=== PATIENT | female | born 1945 | race Caucasian/White ===

== ENCOUNTER 2016-12-21 16:12 | Inpatient (IN) | payer MEDICARE, MEDICAID ==
[~2016-12-21] VITALS: Ht 170.2 cm; Wt 79.4 kg
[~2016-12-21 16:12] MED LIST: ACET1TAB18 PO; BACL10TA PO; BUDE10.2 IH; BUSP10TA3 PO; CYAN10007 IM; DILT120C47 PO; DRON400T PO; ESOM40CA PO; FEXO-65 PO; FLUO40CA8 PO; FLUT1DIS28 IH; GABA-532 PO; GUAI118S76 PO; HUMULIN R SQ; INSU100V7 SQ; IPRA0.2S6 NEB; MIRT15TA7 PO; OXYC-128 PO; PRED1TAB PO; ROSU5TAB PO; SITA50TA PO; SODI15OR5 PO; SPIR25TA4 PO; [UNRECOGNIZED DRUG - CODE] PO; [UNRECOGNIZED DRUG - CODE] PO; [UNRECOGNIZED DRUG - SUPPLY]
--- NOTE | 2016-12-21 16:30 | NUR ---
DR Rooney at the bedside for eval and exam.
--- NOTE | 2016-12-21 16:30 | NUR ---
PT USES O2 VIA N/C ATC AT 2L.
[2016-12-21] MEDS ORDERED: IV NORMAL SALINE 1000 ML BAG IV ONE (16:45)
[2016-12-21 17:08] LABS: BASOPHILS % (AUTO) 0.4 % (0.0-2.0); EOSINOPHILS # (AUTO) 0.1 K/uL (0.0-0.7); EOSINOPHILS % (AUTO) 1.4 % (0.0-7.0); HEMATOCRIT 38.9 % (37-47); HEMOGLOBIN 12.6 G/DL (12.0-16.0); LYMPHOCYTES # (AUTO) 1.8 K/UL (0.8-4.8); LYMPHOCYTES % (AUTO) 17.2 % (20.5-51.5); MEAN CORPUSCULAR HEMOGLOBIN 27.4 UUG (27.0-31.0); MEAN CORPUSCULAR HGB CONC 32 g/dL (32.0-37.0); MEAN CORPUSCULAR VOLUME 84.6 FL (81.0-99.0); MONOCYTES # (AUTO) 0.9 K/UL (0.1-1.30); MONOCYTES % (AUTO) 8.2 % (0.0-11.0); NEUTROPHILS # (AUTO) 7.6 K/UL (1.8-8.9); NEUTROPHILS % (AUTO) 72.8 % (38.5-71.5); PLATELET COUNT (AUTO) 250 K/UL (150-450); WHITE BLOOD COUNT (AUTO) 10.4 K/UL (4.0-11.2)
[2016-12-21 17:11] LABS: CARBON DIOXIDE 34 mmol/L (21-32); CHLORIDE 94 mmol/L (98-107); CREATININE 1.6 mg/dL (0.6-1.3); POTASSIUM 5.1 mmol/L (3.5-5.1); UREA NITROGEN, BLOOD 39 mg/dL (7-18)
[2016-12-21] MEDS ORDERED: BENZ1LOZ58 MM (17:12)
[2016-12-21] MEDS ORDERED: HYDR-552 PO (17:12)
[2016-12-21] MEDS ORDERED: HYDR-3026 PO (17:12)
[2016-12-21] MEDS ORDERED: DILT60TA3 PO (17:12)
[2016-12-21] MEDS ORDERED: LEVE500T20 PO (17:12)
[2016-12-21] MEDS ORDERED: FLUT1BLS IH (17:12)
[2016-12-21] MEDS ORDERED: ALBU2.5V38 IH (17:12)
[2016-12-21] MEDS ORDERED: ALBU18HF2 IH (17:12)
[2016-12-21] MEDS ORDERED: ACET1TAB17 PO (17:12)
[2016-12-21] MEDS ORDERED: FURO-151 PO (17:12)
[2016-12-21] MEDS ORDERED: HYDR-3326 PO (17:12)
[2016-12-21] MEDS ORDERED: TRAV5DRO OP (17:12)
[2016-12-21 17:13] LABS: GLUCOSE 369 mg/dL (74-106)
[2016-12-21 17:17] LABS: ALANINE AMINOTRANSFERASE 17 U/L (14-59); ALKALINE PHOSPHATASE 101 U/L (50-136); ASPARTATE AMINOTRANSFERASE 9 U/L (15-37); BILIRUBIN,DIRECT 0.1 mg/dL (0.0-0.2); BILIRUBIN,TOTAL 0.3 mg/dL (0.2-1.0); LIPASE 173 U/L (73-393); TOTAL PROTEIN, SERUM 6.5 g/dL (6.4-8.2)
[2016-12-21] MEDS ORDERED: INSULIN REGULAR, HUMAN 1,000 UNITS/10 ML VIAL IV ONE (17:30)
[2016-12-21] MEDS ORDERED: PIPERACILLIN SODIUM/TAZOBACTAM 3.375 G in IV DEXTROSE 5% 50 ML IV ONE (17:30)
[2016-12-21] MEDS ORDERED: INSULIN REGULAR, HUMAN 300 UNIT/3 ML VIAL ONE (17:43)
[2016-12-21] MEDS ORDERED: PIPERACILLIN/TAZOBACTAM/D5W 50 ML IV ONE (17:43)
[2016-12-21] MEDS ORDERED: VANCOMYCIN IV 200 ML ONE (17:43)
--- NOTE | 2016-12-21 17:43 | NUR ---
DINNER PTOVIDED, PT ATE 100% OF TRAY. NO C/O PAIN.
[2016-12-21] MEDS: VANCOMYCIN IV 1,000 MG in IV DEXTROSE 5% 250 ML IV ONE ×2 (17:58→18:00)
--- NOTE | 2016-12-21 18:35 | NUR ---
RECEIVED PATIENT FOR ADMISSION 71 YEARS OLD FEMALE FROM ED BY JANICE TO ROOM 219 WITH DX OF CELLULITIS OF BOTH LOWER EXTREMITIES RIGHT WORSE THAN THE LEFT WITH EDEMA AND REDNESS.PLACED INTO BED FIXED AND MADE COMFORTABLE PATIENT IS ALERT AND ORIENTED ORIENTED TO ROOM AND FACILITY.SHE HAS VANCOMICIN RUNNING AT THIS TIME CONNECTED TO IV PUMP HEPLOCK ON HER LEFT FOREARM IN PATENT.SHE IS ON O2 AT 2L/M BY NASAL CANULLA WITH NO SOB MADE COMFORTABLE.
[2016-12-21 18:51] VITALS: BP 97/57
--- NOTE | 2016-12-21 18:55 | NUR ---
DR MILLER HERE AT HER BEDSIDE AND INTERVIEWING THE PATIENT PATIENT HAS HER MITAZAPINE IN HER PURSE AND REFUSED TO SEND IT TO THE PHARMACY AT THIS TIME.WILL INFORM THE AUTOMOTIVE LEASING SALES REPRESENTATIVE.
[2016-12-21] MEDS ORDERED: hydrOXYzine HCL 25 MG TABLET PO PRN (19:45)
[2016-12-21] MEDS ORDERED: IPRATROPIUM BROMIDE 0.5 MG/2.5 ML NEBU NEB PRN (19:45)
[2016-12-21] MEDS ORDERED: ONDANSETRON 4 MG/2 ML VIAL IV PRN (20:00)
[2016-12-21] MEDS ORDERED: ALBUTEROL SULFATE 2.5 MG/3 ML NEBU NEB PRN (20:00)
--- NOTE | 2016-12-21 20:00 | NUR ---
RECEIVED PATIENT AWAKE IN BED. REPORTED FROM DAYSHIFT NURSE THAT PATIENT JUST CAME TO THE FLOOR AT 1830. PATIENT IS A/O X4. DENIES ANY PAIN OR DISCOMFORT AT THIS TIME. VSS. PATIENT ON O2 2L NC SATING 100%. NO RESP. DISTRESS NOTED. PATIENT STATES SHE IS NOT ABLE TO WALK BUT USES W/C TO GET AROUND. PATIENT IS ABLE TO GET OOB AND GO TO BSC WITHOUT ANY ISSUES NOTED. IV HEPLOCK NOTED TO LEFT FA #20 GAUGE. PATIENT HAS OWN BOTTLE OF REMERON AT BEDSIDE. PATIENT WANTS TO KEEP WITH PERSONAL BELONGINGS. PATIENT IS AWAKE AND VERBALIZED UNDERSTANDING THAT SHE IS NOT ALLOWED TO TAKE OWN MEDS, WILL BE PROVIDED TO HER. CALL LIGHT IN REACH. ALL NEEDS ATTENDED. WILL CONTINUE TO MONITOR.
[2016-12-21] MEDS ORDERED: DEXTROSE 50% 50 ML DISP.SYRIN IV PRN (20:15)
[2016-12-21] MEDS ORDERED: INSULIN REGULAR, HUMAN 300 UNITS/3 ML VIAL SQ PRN (20:15)
[2016-12-21] MEDS ORDERED: INSULIN REGULAR, HUMAN 300 UNIT/3 ML VIAL SQ PRN (20:15)
[2016-12-21] MEDS: IV NS 1000 ML 1,000 ML IV PRN (20:20)
[2016-12-21 20:36] VITALS: BP 98/61
[2016-12-21] MEDS: INSULIN DETEMIR 300 UNIT/3 ML CARTRIDGE SQ SCH (20:56)
[2016-12-21] MEDS ORDERED: BLOOD SUGAR DIAGNOSTIC 1 EACH STRIP VI SCH (21:00)
[2016-12-21] MEDS ORDERED: DOCUSATE SODIUM 250 MG CAPSULE PO SCH (21:00)
--- NOTE | 2016-12-21 21:15 | NUR ---
PATIENT PLACED ON TELE ORDERED PER DR. CASTANEDA. PATIENT IS ON SR. PICTURES TAKEN AND PLACED IN CHART.
[2016-12-21] MEDS: DOCUSATE SODIUM 100 MG CAPSULE PO SCH (21:30)
[2016-12-21] MEDS: methylPREDNISolone SOD SUCC 40 MG/ML VIAL IV SCH (21:42)
[2016-12-21] MEDS: LEVOFLOXACIN 250MG /D5W 250 MG in PREMIXED 1 EACH IV SCH (21:42)
[2016-12-21] MEDS: LEVETIRACETAM 500 MG TABLET PO SCH (21:45)
[2016-12-21] MEDS: GABAPENTIN 100 MG CAPSULE PO SCH (21:45)
[2016-12-21] MEDS: BENZONATATE 100 MG CAPSULE PO SCH (21:45)
[2016-12-21] MEDS: MIRTAZAPINE 15 MG TABLET PO SCH (21:45)
[2016-12-21] MEDS: LATANOPROST OPHT DROP 2.5 ML BOTTLE EACHEYE SCH (21:57)
--- NOTE | 2016-12-21 23:00 | NUR ---
PATIENT PLACED ON CONTACT ISOLATION FOR POSSIBLE SHINGLES. NOTIFIED DR. CASTANEDA. PATIENT HAS A HISTORY OF HAVING SHINGLES. BLISTER NOTED TO RIGHT BUTTOCKS AND LOWER BACK. PATIENT SAID SHE RECENTLY JUST HAD AN EPISODE OF SHINGLES. WILL CONTINUE TO MONITOR AND ASSESS AFFECTED AREA. CAUSTIC LIQUOR MAKER NOTIFIED.
[2016-12-21] MEDS ORDERED: ENOXAPARIN SODIUM 30 MG/0.3 ML DISP.SYRIN SUBCUT SCH (23:15)
[2016-12-21] MEDS ORDERED: ENOXAPARIN SODIUM 30 MG/0.3 ML DISP.SYRIN ONE (23:47)
[2016-12-22 00:13] VITALS: BP 120/72
[2016-12-22] MEDS ORDERED: Z GUARD REMEDY PASTE 57 GM TUBE TOP PRN (00:15)
[2016-12-22 04:00] VITALS: BP 122/74
[2016-12-22] MEDS: methylPREDNISolone SOD SUCC 40 MG/ML VIAL IV SCH ×3 (05:30→21:13)
[2016-12-22] MEDS: PANTOPRAZOLE SODIUM 40 MG TABLET.DR PO SCH (06:11)
--- NOTE | 2016-12-22 06:29 | NUR ---
PATIENT ASLEEP IN BED. EASILY AROUSABLE. SLEPT AT INTERVALS THROUGHOUT THE NIGHT. VSS. IVF INFUSING WELL TO LEFT FA. ON O2 NC SATING 99%. DENIES ANY PAIN AT THIS TIME. CALL LIGHT IN REACH. ALL NEEDS ATTENDED. WILL CONTINUE TO MONITOR.
[2016-12-22] MEDS ORDERED: DEXTROSE 50% 50 ML DISP.SYRIN IV PRN ×2 (06:30→23:15)
[2016-12-22] MEDS ORDERED: INSULIN REGULAR, HUMAN 300 UNITS/3 ML VIAL SQ PRN ×2 (06:30→23:15)
[2016-12-22 06:32] LABS: BASOPHILS % (AUTO) 0.1 % (0.0-2.0); EOSINOPHILS % (AUTO) 0.4 % (0.0-7.0); HEMOGLOBIN 12.8 G/DL (12.0-16.0); LYMPHOCYTES # (AUTO) 0.7 K/UL (0.8-4.8); MEAN CORPUSCULAR HGB CONC 33 g/dL (32.0-37.0); MEAN CORPUSCULAR VOLUME 85.6 FL (81.0-99.0); MONOCYTES # (AUTO) 0.1 K/UL (0.1-1.30); MONOCYTES % (AUTO) 0.8 % (0.0-11.0); NEUTROPHILS # (AUTO) 5.6 K/UL (1.8-8.9); NEUTROPHILS % (AUTO) 87.7 % (38.5-71.5); PLATELET COUNT (AUTO) 231 K/UL (150-450); RED BLOOD CELL COUNT(AUTO) 4.56 MIL/UL (4.2-5.4)
[2016-12-22] MEDS: BLOOD SUGAR DIAGNOSTIC 1 EACH STRIP VI SCH ×4 (06:39→21:05)
[2016-12-22 06:44] LABS: WHITE BLOOD COUNT (AUTO) 6.4 K/UL (4.0-11.2)
[2016-12-22 06:52] LABS: THYROID STIMULATING HORMONE 0.228 mIU/mL (0.358-3.740)
[2016-12-22 07:00] LABS: ALANINE AMINOTRANSFERASE 20 U/L (14-59); ALKALINE PHOSPHATASE 98 U/L (50-136); ASPARTATE AMINOTRANSFERASE 13 U/L (15-37); BILIRUBIN,TOTAL 0.2 mg/dL (0.2-1.0); CARBON DIOXIDE 29 mmol/L (21-32); CHLORIDE 97 mmol/L (98-107); CREATININE 1.5 mg/dL (0.6-1.3); MAGNESIUM 1.8 mg/dL (1.8-2.4); PHOSPHOROUS 3.4 mg/dL (2.5-4.9); POTASSIUM 5.3 mmol/L (3.5-5.1); TOTAL PROTEIN, SERUM 6.6 g/dL (6.4-8.2); TRIGLYCERIDES 114 MG/DL (30-150); UREA NITROGEN, BLOOD 30 mg/dL (7-18)
[2016-12-22 07:01] LABS: CHOLESTEROL 157 mg/dL (<200); HDL CHOLESTEROL 58 mg/dL (40-60)
[2016-12-22 07:08] LABS: IRON, SERUM 69 ug/dL (50-175)
--- NOTE | 2016-12-22 07:30 | NUR ---
BLOOD GLUCOSE PER LAB IS 307 AND THE BEDSIDE GLUCOSE RESULT IS 303 REGULAR INSULIN GIVEN PER SLIDING SCALE AND DR HEADLEY NOTIFIED WITH NO NEW ORDERS AT THIS TIME.
[2016-12-22 07:31] LABS: GLUCOSE 307 mg/dL (74-106)
[2016-12-22] MEDS: INSULIN REGULAR, HUMAN 300 UNIT/3 ML VIAL SQ PRN ×3 (07:36→16:47)
[2016-12-22] MEDS: LEVETIRACETAM 500 MG TABLET PO SCH ×2 (08:41→21:04)
[2016-12-22] MEDS: LINAGLIPTIN 5 MG TABLET PO SCH (08:41)
[2016-12-22] MEDS: GABAPENTIN 100 MG CAPSULE PO SCH ×3 (08:41→16:53)
[2016-12-22] MEDS: FLUOXETINE HCL 20 MG CAPSULE PO SCH (08:41)
[2016-12-22] MEDS: busPIRone 10 MG TABLET PO SCH (08:41)
[2016-12-22] MEDS: BENZONATATE 100 MG CAPSULE PO SCH ×3 (08:42→16:53)
[2016-12-22] MEDS: DILTIAZEM HCL 60 MG TABLET PO SCH ×2 (09:00→16:53)
[2016-12-22] MEDS ORDERED: SODIUM HYPOCHLORITE 0.125% 473 ML BOTTLE TP SCH ×2 (09:00)
[2016-12-22] MEDS ORDERED: SITAGLIPTIN PHOSPHATE 50 MG TABLET PO SCH (09:00)
[2016-12-22] MEDS ORDERED: DRONEDARONE HYDROCHLORIDE 400 MG TABLET PO SCH (09:00)
[2016-12-22] MEDS ORDERED: ERGOCALCIFEROL 50,000 UNIT CAPSULE PO SCH (09:00)
[2016-12-22] MEDS ORDERED: MUPIROCIN 2% OINT 22 GM TUBE TP SCH (09:00)
[2016-12-22] MEDS: FLUTICASONE/VILANTEROL 1 EACH BLST.W.DEV IH SCH (09:10)
--- NOTE | 2016-12-22 09:29 | NUR ---
PATIENT STATED HAS INDIGESTION AND USUALLY TAKES MYLANTA FOR IT DR KEVIN HEADLEY NOTIFIED WITH NEW ORDERS AND NOTED.
[2016-12-22] MEDS: MAG HYDROX/AL HYDROX/SIMETH 30 ML LIQUID UDC PO PRN (10:02)
--- NOTE | 2016-12-22 10:57 | NUR ---
DR WARD HERE TO SEE PATIENT WITH NEW ORDERS AND NOTED
--- NOTE | 2016-12-22 10:58 | NUR ---
WOUND CARE CONSULT WOUND CARE CONSULT RECEIVED, PATIENT HAS BEEN SEEN AND EVALUATED BY PODIATRY DR WARD. TREATMENT ORDERS CLARIFIED WITH DPM. WOUND CARE WILL DEFER TREATMENT PLAN AND CONSULT TO DR WARD AT THIS TIME. WILL SEE PRN. ARMIDA MUIR AT 18.
--- NOTE | 2016-12-22 11:52 | NUR ---
BLOOD SUGAR AT THIS TIME IS 481 WITH NO S/S OF HYPERGLYCEMIC REACTIONS CALLED AND NOTIFIED DR HEADLEY STATED JUST GO AHEAD AND COVER PER THE SLIDING SCALE AND NOT NECESSARY FOR STAT GLUCOSE DRAWS DUE TO THE FACT THAT PATIENT HAS ONGOING INFECTION AND ON SOLUMEDROL.
[2016-12-22 12:05] VITALS: BP 121/58
[2016-12-22] MEDS: MUPIROCIN 2% OINT 22 GM TUBE TP SCH ×2 (13:02→21:12)
[2016-12-22] MEDS: SODIUM HYPOCHLORITE 0.125% 473 ML BOTTLE TP SCH ×2 (13:03→21:13)
[2016-12-22 15:24] VITALS: BP 133/59
[2016-12-22 15:40] LABS: *CREATININE,URINE < 13.0 mg/dL (30-125); *URINE TOTAL PROTEIN RANDOM 8.7 mg/dL (<150/24HR)
[2016-12-22 15:41] LABS: *BILIRUBIN,URIN NEGATIVE (NEGATIVE); *BLOOD, URINE NEGATIVE (NEGATIVE); *CLARITY,URINE CLEAR (CLEAR); *COLOR,URINE YELLOW (YELLOW); *KETONES,URINE NEGATIVE (NEGATIVE); *PROTEIN,URINE NEGATIVE (NEGATIVE); *UROBILINOGEN,URINE 0.2 E.U./dl (NORMAL); LEUKOCYTE ESTERASE ,URINE NEGATIVE (NEGATIVE); NITRITE, URINE NEGATIVE (NEGATIVE); PH,URINE 5.5 (5.0-8.0)
[2016-12-22 15:53] LABS: UGLUCOSE 3+ (NEGATIVE)
--- NOTE | 2016-12-22 15:58 | NUR ---
CLINICAL PHARMACY NOTE: VANCOMYCIN PHARMACY TO DOSE Subjective: To continue vancomycin in this 71 y/o female for r/o PNA, RLE cellulitis (per ID note) Objective: height 170cm weight 170 lb Objective BUN 30 Scr 1.5 wbc 6.4 temp 97.4 Assessment/Plan Will continue vancomycin 1gm IVPB q24h for predicted vancomycin trough level of 16 mcg/ml at steady state. Second dose is due today at 1800. Plan to order vancomycin trough level before 4th dose (level not yet ordered). Will monitor renal function closely & adjust dose if needed. Will continue to monitor.
[2016-12-22 16:10] LABS: BACTERIA,URINE NONE SEEN /HPF (NONE SEEN); RBC,URINE 0-3 /HPF (0-3); SQUAMOUS EPITHELIAL CELL,UR FEW /HPF (NONE SEEN); WBC,URINE 0-3 /HPF (0-3)
--- NOTE | 2016-12-22 16:44 | NUR ---
BLOOD SUGAR AT THIS TIME IS 420 NO S/S OF HYPERGLYCEMIC REACTIONS DR BROWN AWARE AND HE STATED TO CONTINUE TO COVER THE PATIENT PER SLIDING SCALE
[2016-12-22] MEDS ORDERED: VANCOMYCIN IV 1 G in PREMIXED 0 EACH IV SCH (18:00)
--- NOTE | 2016-12-22 18:00 | NUR ---
DENIES PAIN OR DISCOMFORTS AT THIS TIME REMEDY PASTE ORDER CHANGED TO QS PER MD.
[2016-12-22 19:52] VITALS: BP 121/50
[2016-12-22 20:00] VITALS: BP 121/50
[2016-12-22] MEDS ORDERED: TRAVOPROST 0.004% OPHT DROP 2.5 ML BOTTLE EACHEYE SCH (21:00)
[2016-12-22] MEDS: LEVOFLOXACIN 250MG /D5W 250 MG in PREMIXED 1 EACH IV SCH (21:00)
[2016-12-22] MEDS: DOCUSATE SODIUM 100 MG CAPSULE PO SCH (21:03)
[2016-12-22] MEDS: LACTOBACILLUS RHAMNOSUS GG 1 EACH CAPSULE PO SCH (21:03)
[2016-12-22] MEDS: MIRTAZAPINE 15 MG TABLET PO SCH (21:04)
[2016-12-22] MEDS: LATANOPROST OPHT DROP 2.5 ML BOTTLE EACHEYE SCH (21:05)
[2016-12-22] MEDS: Z GUARD REMEDY PASTE 57 GM TUBE TOP SCH (21:05)
[2016-12-22] MEDS: INSULIN DETEMIR 300 UNIT/3 ML CARTRIDGE SQ SCH (21:10)
[2016-12-22] MEDS: ENOXAPARIN SODIUM 40 MG/0.4 ML DISP.SYRIN SQ SCH (21:10)
--- NOTE | 2016-12-22 21:45 | NUR ---
nsg: called Dr. Sergio Espinal regarding acu check of 446. awaiting call back.
--- NOTE | 2016-12-22 22:20 | NUR ---
NSG: PT CARE [facility]SF[facility]. REPORT GIVEN.
--- NOTE | 2016-12-22 23:24 | NUR ---
Patient's moderate insulin coverage changed to Aggressive insulin sliding scale coverage per MD order.
[2016-12-23 00:18] VITALS: BP 139/76
[2016-12-23] MEDS: ACETAMINOPHEN 325 MG TABLET PO PRN ×3 (00:32→21:27)
[2016-12-23] MEDS: IV NS 1000 ML 1,000 ML IV PRN ×2 (00:34→18:40)
[2016-12-23 04:00] VITALS: BP 135/73
--- NOTE | 2016-12-23 04:00 | NUR ---
Wound care/dressing done, Wednesday wound pictures inside. Sponge bath provided but patient refused to change her night pajamas. Assisted w/ all needs, no acute res. distress. Vital signs are stable.
[2016-12-23] MEDS: Z GUARD REMEDY PASTE 57 GM TUBE TOP SCH ×2 (05:40→21:20)
[2016-12-23] MEDS: BLOOD SUGAR DIAGNOSTIC 1 EACH STRIP VI SCH ×4 (05:40→21:00)
[2016-12-23 05:52] LABS: BASOPHILS % (AUTO) 0.1 % (0.0-2.0); EOSINOPHILS # (AUTO) 0.1 K/uL (0.0-0.7); EOSINOPHILS % (AUTO) 0.6 % (0.0-7.0); HEMATOCRIT 37.5 % (37-47); HEMOGLOBIN 12.5 G/DL (12.0-16.0); LYMPHOCYTES % (AUTO) 7.7 % (20.5-51.5); MEAN CORPUSCULAR HEMOGLOBIN 28.4 UUG (27.0-31.0); MEAN CORPUSCULAR HGB CONC 33 g/dL (32.0-37.0); MEAN CORPUSCULAR VOLUME 85.4 FL (81.0-99.0); MONOCYTES # (AUTO) 0.4 K/UL (0.1-1.30); MONOCYTES % (AUTO) 2.8 % (0.0-11.0); NEUTROPHILS % (AUTO) 88.8 % (38.5-71.5); PLATELET COUNT (AUTO) 248 K/UL (150-450); RED BLOOD CELL COUNT(AUTO) 4.39 MIL/UL (4.2-5.4); WHITE BLOOD COUNT (AUTO) 13.5 K/UL (4.0-11.2)
[2016-12-23] MEDS: PANTOPRAZOLE SODIUM 40 MG TABLET.DR PO SCH (05:52)
[2016-12-23] MEDS: methylPREDNISolone SOD SUCC 40 MG/ML VIAL IV SCH ×3 (05:52→21:25)
[2016-12-23 05:58] LABS: ALANINE AMINOTRANSFERASE 17 U/L (14-59); ALKALINE PHOSPHATASE 88 U/L (50-136); ASPARTATE AMINOTRANSFERASE 8 U/L (15-37); BILIRUBIN,TOTAL 0.3 mg/dL (0.2-1.0); CARBON DIOXIDE 32 mmol/L (21-32); CHLORIDE 96 mmol/L (98-107); CREATINE KINASE, TOTAL 35 U/L (26-192); CREATININE 1.2 mg/dL (0.6-1.3); GLUCOSE 261 mg/dL (74-106); MAGNESIUM 1.9 mg/dL (1.8-2.4); PHOSPHOROUS 3.6 mg/dL (2.5-4.9); POTASSIUM 4.7 mmol/L (3.5-5.1); TOTAL PROTEIN, SERUM 6.6 g/dL (6.4-8.2); UREA NITROGEN, BLOOD 25 mg/dL (7-18)
--- NOTE | 2016-12-23 09:00 | NUR ---
ADVISED BY PHARMACIST IN REGARDS OF THE HOME MEDS THAT THE "SON" SHOULD BRING HOME MEDS AND TO MAKE SURE TO TAKE IT TO THE PHARMACY.
[2016-12-23] MEDS: MAG HYDROX/AL HYDROX/SIMETH 30 ML LIQUID UDC PO PRN (09:40)
[2016-12-23] MEDS: LEVETIRACETAM 500 MG TABLET PO SCH ×2 (09:44→21:22)
[2016-12-23] MEDS: FLUOXETINE HCL 20 MG CAPSULE PO SCH (09:44)
[2016-12-23] MEDS: busPIRone 10 MG TABLET PO SCH (09:45)
[2016-12-23] MEDS: DILTIAZEM HCL 60 MG TABLET PO SCH ×2 (09:45→16:43)
[2016-12-23] MEDS: LACTOBACILLUS RHAMNOSUS GG 1 EACH CAPSULE PO SCH ×2 (09:45→21:22)
[2016-12-23] MEDS: BENZONATATE 100 MG CAPSULE PO SCH ×3 (09:45→16:43)
[2016-12-23] MEDS: LINAGLIPTIN 5 MG TABLET PO SCH (09:45)
[2016-12-23] MEDS: MUPIROCIN 2% OINT 22 GM TUBE TP SCH ×2 (09:46→21:24)
[2016-12-23] MEDS: GABAPENTIN 100 MG CAPSULE PO SCH ×3 (09:46→16:42)
[2016-12-23] MEDS: SODIUM HYPOCHLORITE 0.125% 473 ML BOTTLE TP SCH ×2 (09:46→21:25)
[2016-12-23] MEDS: FLUTICASONE/VILANTEROL 1 EACH BLST.W.DEV IH SCH (09:46)
[2016-12-23] MEDS: INSULIN REGULAR, HUMAN 300 UNIT/3 ML VIAL SQ PRN ×3 (09:50→16:39)
[2016-12-23 11:42] VITALS: BP 125/69
--- NOTE | 2016-12-23 12:25 | NUR ---
ADVISED DR. BROWN ABOUT PT'S BLOOD SUGAR BEING 414. PER DR Wendy BROWN "NO NEW ORDERS" Addendum: 12/23/16 at 1247 by MARKELL MANDUJANO RN NO S/S OF HYPERGLYCEMIC REACTIONS, DR HEADLEY "NO NEW ORDERS", COVER PER SLIDING SCALE AND NOT NECESSARY FOR STAT GLUCOSE DRAWS DUE TO THE FACT THAT PATIENT HAS ONGOING INFECTION AND ON SOLUMEDROL.
[2016-12-23] MEDS: VANCOMYCIN IV 1 G in PREMIXED 0 EACH IV SCH (14:14)
--- NOTE | 2016-12-23 14:54 | NUR ---
CLINICAL PHARMACY NOTE: VANCOMYCIN PHARMACY TO DOSE Subjective: To continue vancomycin in this 71 y/o female for r/o PNA, RLE cellulitis (per ID note) Objective: height 170cm weight 170 lb Objective BUN 25 Scr 1.2 wbc 13.5 temp 97.4 Assessment/Plan Scr continues to improve, therefore changed vanco regimen of 1gm IVPB q24h to 1gm q21h for expected trough of 15.68. Second dose is today at 1400. Will monitor renal function closely & adjust dose if needed. Will continue to monitor.
[2016-12-23 15:44] VITALS: BP 140/65
--- NOTE | 2016-12-23 16:53 | NUR ---
NO S/S OF HYPERGLYCEMIC REACTIONS,PER DR HEADLEY NO NEW ORDERS, COVER PER SLIDING SCALE AND NOT NECESSARY FOR STAT GLUCOSE DRAWS DUE TO THE FACT THAT PATIENT HAS ONGOING INFECTION AND ON SOLUMEDROL.
--- NOTE | 2016-12-23 19:00 | NUR ---
"SON" OR ANY FAMILY MEMBERS NEVER CAME. PATIENT KNOWS IN REGARDS OF THE NEED TO BRING THE HOME MEDS FROM HOME AND GIVE IT TO THE PHARMACY. ADVISED THE PHARMACY THAT NO FAMILY MEMBER WERE NOTED IN THE ROOM. Addendum: 12/23/16 at 1925 by MARKELL MANDUJANO RN PER THE PT "I WAS TOLD BY THE NURSE THAT THE HOME HEART MED WILL GET SUBSTITUTED". ASKED WHO WAS THE NURSE THAT ADVISED THAT PER PT "I DON'T REMEMBER" REMINDED THE PT AGAIN THAT WE STILL NEED THE MEDICATION. "OK" PER THE PT.
--- NOTE | 2016-12-23 19:25 | NUR ---
PT IS LAYING IN BED COMFORTABLY. NO S//S OF HYPERGLYCEMIA. NO PAIN NOTED. ANO S/S OF RESPIRATORY DISTRESS NOTED, ALL SAFETY NEEDS ARE MET. IV INTACT/PATENT.
[2016-12-23 20:00] VITALS: BP 129/59
--- NOTE | 2016-12-23 20:30 | NUR ---
Blood sugar shows 509, patient stated she just ate cookies & consumed 2 glasses of iced tea, reasoning out that all her hospital medications makes her more hungry. Educated again about DM & to limit her sugar intake, but patient stated she cannot promise. Will re-check her sugar in 45 mins. Bedside cookies & other food removed for now, & placed it in her cabinet. Will re-check blood sugar in 45 mins.
[2016-12-23] MEDS: LEVOFLOXACIN 250MG /D5W 250 MG in PREMIXED 1 EACH IV SCH (20:43)
[2016-12-23] MEDS: LATANOPROST OPHT DROP 2.5 ML BOTTLE EACHEYE SCH (21:21)
[2016-12-23] MEDS: DOCUSATE SODIUM 100 MG CAPSULE PO SCH (21:22)
[2016-12-23] MEDS: ENOXAPARIN SODIUM 40 MG/0.4 ML DISP.SYRIN SQ SCH (21:23)
[2016-12-23] MEDS: MIRTAZAPINE 15 MG TABLET PO SCH (21:23)
[2016-12-23] MEDS: DRONEDARONE 400 MG PO SCH (21:28)
--- NOTE | 2016-12-23 22:00 | NUR ---
Repeat blood sugar showed 472mg/dl. Routine levemir 45 units insulin given followed by 10 units of regular insulin per sliding scale coverage. Pt requested tylenol prior wound care. Right foot ulcer care/wound dressing change done. Bed bath provided. Left forearm IV line infiltrated. Reinserted new IV line on left arm with A20 gauge. IV fluid maintained. Kept pt comfortable. Night snacks provided.
[2016-12-23] MEDS: INSULIN DETEMIR 300 UNIT/3 ML CARTRIDGE SQ SCH (22:26)
[2016-12-24 05:00] VITALS: BP 155/78
[2016-12-24 05:48] LABS: BASOPHILS % (AUTO) 0.1 % (0.0-2.0); EOSINOPHILS % (AUTO) 0.1 % (0.0-7.0); HEMATOCRIT 38.4 % (37-47); HEMOGLOBIN 12.5 G/DL (12.0-16.0); LYMPHOCYTES # (AUTO) 0.7 K/UL (0.8-4.8); LYMPHOCYTES % (AUTO) 5.1 % (20.5-51.5); MEAN CORPUSCULAR HEMOGLOBIN 27.9 UUG (27.0-31.0); MEAN CORPUSCULAR HGB CONC 33 g/dL (32.0-37.0); MEAN CORPUSCULAR VOLUME 85.7 FL (81.0-99.0); MONOCYTES # (AUTO) 0.4 K/UL (0.1-1.30); MONOCYTES % (AUTO) 2.6 % (0.0-11.0); NEUTROPHILS # (AUTO) 12.7 K/UL (1.8-8.9); NEUTROPHILS % (AUTO) 92.1 % (38.5-71.5); PLATELET COUNT (AUTO) 253 K/UL (150-450); RED BLOOD CELL COUNT(AUTO) 4.48 MIL/UL (4.2-5.4); WHITE BLOOD COUNT (AUTO) 13.8 K/UL (4.0-11.2)
[2016-12-24 05:55] LABS: CARBON DIOXIDE 32 mmol/L (21-32); CHLORIDE 99 mmol/L (98-107); CREATININE 1.1 mg/dL (0.6-1.3); GLUCOSE 299 mg/dL (74-106); POTASSIUM 4.7 mmol/L (3.5-5.1); UREA NITROGEN, BLOOD 26 mg/dL (7-18)
[2016-12-24] MEDS: methylPREDNISolone SOD SUCC 40 MG/ML VIAL IV SCH ×2 (05:58→14:12)
[2016-12-24] MEDS: MAG HYDROX/AL HYDROX/SIMETH 30 ML LIQUID UDC PO PRN (05:59)
[2016-12-24] MEDS: ACETAMINOPHEN 325 MG TABLET PO PRN (05:59)
[2016-12-24] MEDS: PANTOPRAZOLE SODIUM 40 MG TABLET.DR PO SCH (05:59)
[2016-12-24] MEDS: BLOOD SUGAR DIAGNOSTIC 1 EACH STRIP VI SCH ×2 (06:29→11:14)
--- NOTE | 2016-12-24 06:35 | NUR ---
Pt is awake, resting well. No acute distress noted. Complained of right foot pain, medicated with tylenol. Vital signs stable. Kept clean, dry and comfortable. All needs anticipated.
[2016-12-24] MEDS: DRONEDARONE 400 MG PO SCH (08:37)
[2016-12-24] MEDS: FLUOXETINE HCL 20 MG CAPSULE PO SCH (08:38)
[2016-12-24] MEDS: BENZONATATE 100 MG CAPSULE PO SCH ×2 (08:38→12:00)
[2016-12-24] MEDS: busPIRone 10 MG TABLET PO SCH (08:38)
[2016-12-24] MEDS: LACTOBACILLUS RHAMNOSUS GG 1 EACH CAPSULE PO SCH (08:38)
[2016-12-24] MEDS: LEVETIRACETAM 500 MG TABLET PO SCH (08:39)
[2016-12-24] MEDS: DILTIAZEM HCL 60 MG TABLET PO SCH (08:40)
[2016-12-24] MEDS: FLUTICASONE/VILANTEROL 1 EACH BLST.W.DEV IH SCH (08:40)
[2016-12-24] MEDS: GABAPENTIN 100 MG CAPSULE PO SCH ×2 (08:40→12:00)
[2016-12-24] MEDS: LINAGLIPTIN 5 MG TABLET PO SCH (08:40)
[2016-12-24] MEDS: MUPIROCIN 2% OINT 22 GM TUBE TP SCH (08:40)
[2016-12-24] MEDS: Z GUARD REMEDY PASTE 57 GM TUBE TOP SCH (08:41)
[2016-12-24] MEDS: SODIUM HYPOCHLORITE 0.125% 473 ML BOTTLE TP SCH (08:41)
[2016-12-24] MEDS: INSULIN REGULAR, HUMAN 300 UNIT/3 ML VIAL SQ PRN ×2 (08:44→11:20)
[2016-12-24] MEDS: VANCOMYCIN IV 1 G in PREMIXED 0 EACH IV SCH (10:50)
[2016-12-24] MEDS ORDERED: PRED20TA PO (11:02)
[2016-12-24 11:07] LABS: A/G RATIO 0.8 (0.7-1.7); ALBUMIN 2.7 g/dL (2.9-4.4); ALPHA-1-GLOBULIN 0.3 g/dL (0.0-0.4); ALPHA-2-GLOBULIN 1.1 g/dL (0.4-1.0); BETA GLOBULIN 1.2 g/dL (0.7-1.3); GAMMA GLOBULIN 0.5 g/dL (0.4-1.8); GLOBULIN, TOTAL 3.2 g/dL (2.2-3.9); M-SPIKE Not Observed g/dL (Not Observed)
[2016-12-24 11:18] VITALS: BP 134/60
--- NOTE | 2016-12-24 11:46 | NUR ---
NO S/S OF HYPERGLYCEMIC REACTIONS, PT'S BS IS 504.. KEVIN. DR HEADLEY "NO NEW ORDERS", COVER PER SLIDING SCALE AND NOT NECESSARY FOR STAT GLUCOSE DRAWS DUE TO THE FACT THAT PATIENT HAS ONGOING INFECTION AND ON SOLUMEDROL. PT WAS TRYING TO GET "SNACKS AND SUGAR ROLLS" MULTIPLE TIMES. PROVIDED EDUCATION ON IMPORTANCE TO LIMIT SUGAR INTAKE. "THE MEDICATION CAUSES IT TO HAVE HIGH BLOOD SUGAR". EDUCATION PROVIDED.
--- NOTE | 2016-12-24 11:54 | NUR ---
"i will check her medications" per dr. wright
--- NOTE | 2016-12-24 14:35 | NUR ---
DISCHARGE NOTE: NO S/S OF RESPIRATORY DISTRESS NOTED. PT IS ON 2L NC. PT IS CALM, NOTED THE THE PT WAS EATING JELLO, PER PT "IT'S JUST MY SNACK". EDUCATION PROVIDED. ADVISED THE REHAB NURSE THAT THE PT HAS 2 BAGS WITH SNACKS, PT LIKE TO TAKE. ADVISED ABOUT HIGH BLOOD SUGAR. NO HYPERGLYCEMIC S/S NOTED. WOUND CARE IS DONE, PICTURES ARE TAKEN. NO BLEEDING NOTED. IV INTACT/PATENT. ALL SAFETY NEEDS ARE MET.
[2016-12-24] MEDS ORDERED: DOCU-141 PO (16:01)
== END 2016-12-24 14:35 | DRG 637 ==
LOC: ER 16:13 → MED 18:17 → TELE 21:28 → MED 12-23 10:41
PROVIDERS: ADMIT Internal Medicine; ATTEND Internal Medicine
DX: E11.621 Type 2 diabetes mellitus with foot ulcer (principal); E43 Unspecified severe protein-calorie malnutrition; L03.116 Cellulitis of left lower limb; J44.0 Chronic obstructive pulmonary disease with (acute) lower respiratory infection; J44.1 Chronic obstructive pulmonary disease with (acute) exacerbation; L97.921 Non-pressure chronic ulcer of unspecified part of left lower leg limited to breakdown of skin; M86.9 Osteomyelitis, unspecified; L03.115 Cellulitis of right lower limb; J96.10 Chronic respiratory failure, unspecified whether with hypoxia or hypercapnia; N17.0 Acute kidney failure with tubular necrosis; E11.69 Type 2 diabetes mellitus with other specified complication; E11.65 Type 2 diabetes mellitus with hyperglycemia; L97.519 Non-pressure chronic ulcer of other part of right foot with unspecified severity; Z99.3 Dependence on wheelchair; Z79.4 Long term (current) use of insulin; Z79.84 Long term (current) use of oral hypoglycemic drugs; Z79.899 Other long term (current) drug therapy; E87.5 Hyperkalemia; T50.0X5A Adverse effect of mineralocorticoids and their antagonists, initial encounter; Y92.099 Unspecified place in other non-institutional residence as the place of occurrence of the external cause; Z88.6 Allergy status to analgesic agent; Z88.2 Allergy status to sulfonamides; Z86.718 Personal history of other venous thrombosis and embolism; E11.51 Type 2 diabetes mellitus with diabetic peripheral angiopathy without gangrene; I87.8 Other specified disorders of veins; Z68.27 Body mass index [BMI] 27.0-27.9, adult; I69.931 Monoplegia of upper limb following unspecified cerebrovascular disease affecting right dominant side; J20.9 Acute bronchitis, unspecified; B96.89 Other specified bacterial agents as the cause of diseases classified elsewhere; Z87.891 Personal history of nicotine dependence; F43.10 Post-traumatic stress disorder, unspecified; Z99.81 Dependence on supplemental oxygen; E11.22 Type 2 diabetes mellitus with diabetic chronic kidney disease; I13.10 Hypertensive heart and chronic kidney disease without heart failure, with stage 1 through stage 4 chronic kidney disease, or unspecified chronic kidney disease; N18.9 Chronic kidney disease, unspecified; B02.9 Zoster without complications; Z86.72 Personal history of thrombophlebitis; Z79.51 Long term (current) use of inhaled steroids; K21.9 Gastro-esophageal reflux disease without esophagitis; I51.9 Heart disease, unspecified; E78.5 Hyperlipidemia, unspecified; E11.622 Type 2 diabetes mellitus with other skin ulcer; E66.3 Overweight; I48.91 Unspecified atrial fibrillation; Z86.19 Personal history of other infectious and parasitic diseases; F32.9 Major depressive disorder, single episode, unspecified
CPT/HCPCS: 36415; 70030-TC; 71010; 73630; 83550; 83605; 83690; 83735; 83970; 84100; 84155; 84156; 84165; 84300; 84443; 85025; 87040; 93005; 93307; 97116; 97161; 97530; A4663; J1650; J1815; J1956; J2405; J2543; J2920; J3370; J7030

== ENCOUNTER 2016-12-24 10:52 | Inpatient (IN) | payer MEDICARE, MEDICAID ==
[~2016-12-24] VITALS: Ht 170.2 cm; Wt 79.4 kg
[~2016-12-24 10:52] MED LIST changes: +ACET1TAB17 PO; -ACET1TAB18 PO; +ALBU18HF2 IH; +ALBU2.5V38 IH; -BACL10TA PO; +BENZ1LOZ58 MM; -CYAN10007 IM; -DILT120C47 PO; +DILT60TA3 PO; -FEXO-65 PO; +FLUT1BLS IH; -FLUT1DIS28 IH; +FURO-151 PO; -GUAI118S76 PO; +HYDR-3026 PO; +HYDR-3326 PO; +HYDR-552 PO; +LEVE500T20 PO; -OXYC-128 PO; -SODI15OR5 PO; +TRAV5DRO OP; -[UNRECOGNIZED DRUG - SUPPLY]
[2016-12-24] MEDS ORDERED: PRED20TA PO (11:02)
[2016-12-24] MEDS ORDERED: Z GUARD REMEDY PASTE 57 GM TUBE TOP PRN (15:15)
[2016-12-24 15:30] VITALS: BP 127/68
--- NOTE | 2016-12-24 16:00 | NUR ---
Patient admitted from 2nd floor for next level care. Diagnosis COPD. Patient on 3 liters nasal cannula, unlabored. Patient in no noted distress. Understands plan of care. Awaiting orders for patient. BS 300. Patient educated on diet and proper care for diabetes. Patient unable to ambulate without help. Patient able to transfer from bed to bedside commode.
[2016-12-24] MEDS ORDERED: DOCU-141 PO (16:01)
[2016-12-24] MEDS ORDERED: ALBUTEROL SULFATE 2.5 MG/3 ML NEBU IH PRN (16:30)
[2016-12-24] MEDS ORDERED: IPRATROPIUM BROMIDE 0.5 MG/2.5 ML NEBU NEB PRN (16:30)
[2016-12-24] MEDS ORDERED: ALBUTEROL SULFATE 8 GM HFA.AER.AD IH PRN (16:30)
[2016-12-24] MEDS ORDERED: HYDROCODONE/APAP 5-325MG TABLET PO PRN ×2 (16:30)
[2016-12-24] MEDS ORDERED: hydrOXYzine HCL 25 MG TABLET PO SCH (17:00)
[2016-12-24] MEDS: DRONEDARONE 400 MG PO SCH (17:00)
--- NOTE | 2016-12-24 17:56 | NUR ---
Patient blood sugar is now 318. No sliding scale at this time. Awaiting MD orders.
[2016-12-24] MEDS: LEVETIRACETAM 500 MG TABLET PO SCH (18:46)
[2016-12-24] MEDS: GABAPENTIN 100 MG CAPSULE PO SCH (18:47)
[2016-12-24] MEDS: DILTIAZEM HCL 60 MG TABLET PO SCH (18:47)
[2016-12-24] MEDS: BENZONATATE 100 MG CAPSULE PO SCH (18:47)
--- NOTE | 2016-12-24 18:50 | NUR ---
Have yet to receive orders for patient sliding scale. Dr. Hill paged in regard to needing orders. Confirmation received that MD will put in necessary orders.
--- NOTE | 2016-12-24 19:04 | NUR ---
paged again in regard to sliding scale.
[2016-12-24] MEDS ORDERED: DEXTROSE 50% 50 ML DISP.SYRIN IV PRN (19:15)
--- NOTE | 2016-12-24 19:30 | NUR ---
RECEIVED PATIENT AWAKE, ALERT, AND ORIENTED X 3 OOB TO BSC TO VOID WITH ASSIST OF ONE. UNSTEADY WITH AMBULATION. WHEN BACK IN BED CALL LIGHT WITHIN REACH AAND BED ALARM ON AAT. C/O GENERALIZED CHRONIC PAIN AT PRESENT BUT REFUSES NORCO AT THIS TIME. OFFERED HEAT OR ICE PACK AND DECLINED. CONSISTENT CARB DIET REINFORCED. HAS BEEN RUNNING HIGH ACCUCHECKS. PATIENT UNDERSTANDS AND IS REQUESTING SUGAR FREE SNACKS. SUGAR FREE COLA AND SUGAR FREE PUDDING GIVEN AFTER ACCUCHECK WAS DONE AND TREATED. INSTRUCTED TO CALL RN FOR ANY REQUESTS OR CONCERNS OR NEED TO GET OOB
[2016-12-24 19:54] VITALS: BP 117/66
[2016-12-24] MEDS ORDERED: ONDANSETRON 4 MG/2 ML VIAL IV PRN (20:30)
[2016-12-24] MEDS ORDERED: INSULIN DETEMIR 300 UNIT/3 ML CARTRIDGE SQ SCH (21:00)
[2016-12-24] MEDS: DOCUSATE SODIUM 100 MG CAPSULE PO SCH (21:00)
[2016-12-24] MEDS ORDERED: TRAVOPROST 0.004% OPHT DROP 2.5 ML BOTTLE EACHEYE SCH (21:00)
[2016-12-24] MEDS ORDERED: FLUTICASONE/SALMETEROL 250/50 INHALER INH SCH (21:00)
[2016-12-24] MEDS: ATORVASTATIN 10 MG TABLET PO SCH (21:30)
[2016-12-24] MEDS: MIRTAZAPINE 15 MG TABLET PO SCH (21:30)
[2016-12-24] MEDS: LATANOPROST OPHT DROP 2.5 ML BOTTLE EACHEYE SCH (21:32)
[2016-12-24] MEDS: MUPIROCIN 2% OINT 22 GM TUBE TP SCH (21:32)
[2016-12-24] MEDS: SODIUM HYPOCHLORITE 0.125% 473 ML BOTTLE TP SCH (21:33)
[2016-12-24] MEDS: ENOXAPARIN SODIUM 40 MG/0.4 ML DISP.SYRIN SQ SCH (21:35)
[2016-12-24] MEDS: BLOOD SUGAR DIAGNOSTIC 1 EACH STRIP VI SCH (21:36)
[2016-12-24] MEDS: INSULIN REGULAR, HUMAN 300 UNITS/3 ML VIAL SQ PRN (21:48)
[2016-12-24] MEDS ORDERED: INSULIN REGULAR, HUMAN 300 UNIT/3 ML VIAL SQ ONE (23:00)
--- NOTE | 2016-12-24 23:20 | NUR ---
SPOKE WITH DR BROWN REGARDING 2300 INSULIN DOSE. ORDER CLARIFIED AND STATED NOT TO GIVE THE INSULIN ONE TIME DOSE
--- NOTE | 2016-12-25 06:19 | NUR ---
RECEIVED A 71 YEAR OLD FEMALE WITH ADMITTING DIAGNOSIS OF COPD, DM RHEUMATOID ARTHRITIS AND GERD. AAOX4 OOB TO BEDSIDE COMMODE WITH ASSIST. VOIDING WELL. NO BM NOTED THIS SHIFT.ON 3LITERS OF OXYGEN VIA NASAL CANNULA. PULSE OX 93 % . PATIENT HAS ELEVATED BLOOD SUGARS. BS LAST NIGHT WAS 457. DR BROWN AWARE. PATIENT ALREADY RECEIVED 10 UNITS OF REGULAR HUMALOG AND 45 UNITS OF LEVEMIR. NOTHING EXTRA INSULIN GIVEN. DRESSING TO RIGHT INNER FOOT DONE ORDERED. RIGHT FOOT CLEANSED WITH DAKINS AND BACTROBAN OINTMENT APPLIED THEN WRAPPED WITH KERLIX. TOLERATED PROCEDURE WELL.. FALL PRECAUTIONS MAINTAINED. VITAL SIGNS TAKEN AND RECORDED.WILL MONITOR PATIENT.
[2016-12-25] MEDS: PANTOPRAZOLE SODIUM 40 MG TABLET.DR PO SCH (06:33)
[2016-12-25] MEDS: BLOOD SUGAR DIAGNOSTIC 1 EACH STRIP VI SCH ×4 (06:36→22:08)
[2016-12-25 06:59] LABS: BASOPHILS % (AUTO) 0.1 % (0.0-2.0); EOSINOPHILS % (AUTO) 0.1 % (0.0-7.0); HEMATOCRIT 39.3 % (37-47); LYMPHOCYTES # (AUTO) 1.1 K/UL (0.8-4.8); LYMPHOCYTES % (AUTO) 8.6 % (20.5-51.5); MEAN CORPUSCULAR HEMOGLOBIN 28.1 UUG (27.0-31.0); MEAN CORPUSCULAR HGB CONC 33 g/dL (32.0-37.0); MEAN CORPUSCULAR VOLUME 84.9 FL (81.0-99.0); MONOCYTES # (AUTO) 0.9 K/UL (0.1-1.30); MONOCYTES % (AUTO) 6.7 % (0.0-11.0); NEUTROPHILS # (AUTO) 11.2 K/UL (1.8-8.9); NEUTROPHILS % (AUTO) 84.5 % (38.5-71.5); PLATELET COUNT (AUTO) 241 K/UL (150-450); RED BLOOD CELL COUNT(AUTO) 4.62 MIL/UL (4.2-5.4); WHITE BLOOD COUNT (AUTO) 13.2 K/UL (4.0-11.2)
[2016-12-25 07:40] LABS: BAND % (MANUAL) 8 % (0-10); EOSINOPHILS % (MANUAL) 1 % (0-8); LYMPHOCYTES % (MANUAL) 9 % (20-40); METAMYELOCYTES % 1 % (0-1); MONOCYTES % (MANUAL) 4 % (2-10); NEUTROPHILS % (MANUAL) 77 % (42-75)
[2016-12-25 07:42] LABS: CARBON DIOXIDE 31 mmol/L (21-32); CHLORIDE 99 mmol/L (98-107); CREATININE 1.1 mg/dL (0.6-1.3); GLUCOSE 190 mg/dL (74-106); MAGNESIUM 2.2 mg/dL (1.8-2.4); PHOSPHOROUS 3.1 mg/dL (2.5-4.9); POTASSIUM 4.8 mmol/L (3.5-5.1); UREA NITROGEN, BLOOD 29 mg/dL (7-18)
[2016-12-25 08:00] VITALS: BP 170/79
[2016-12-25] MEDS: INSULIN REGULAR, HUMAN 300 UNIT/3 ML VIAL SQ PRN (08:07)
[2016-12-25] MEDS ORDERED: SPIRONOLACTONE 25 MG TABLET PO SCH (09:00)
[2016-12-25] MEDS ORDERED: SITAGLIPTIN PHOSPHATE 50 MG TABLET PO SCH (09:00)
[2016-12-25] MEDS: DRONEDARONE 400 MG PO SCH ×2 (09:00→16:40)
[2016-12-25] MEDS ORDERED: FUROSEMIDE 40 MG TABLET PO SCH (09:00)
[2016-12-25] MEDS: FLUOXETINE HCL 20 MG CAPSULE PO SCH (09:13)
[2016-12-25] MEDS: LEVETIRACETAM 500 MG TABLET PO SCH ×2 (09:14→16:09)
[2016-12-25] MEDS: predniSONE 20 MG TABLET PO SCH (09:14)
[2016-12-25] MEDS: GABAPENTIN 100 MG CAPSULE PO SCH ×3 (09:14→16:09)
[2016-12-25] MEDS: DILTIAZEM HCL 60 MG TABLET PO SCH ×2 (09:14→16:09)
[2016-12-25] MEDS: busPIRone 10 MG TABLET PO SCH (09:15)
[2016-12-25] MEDS: BENZONATATE 100 MG CAPSULE PO SCH ×3 (09:15→16:09)
[2016-12-25] MEDS: MUPIROCIN 2% OINT 22 GM TUBE TP SCH ×2 (09:17→22:00)
[2016-12-25] MEDS: FLUTICASONE/VILANTEROL 1 EACH BLST.W.DEV IH SCH (09:18)
[2016-12-25] MEDS: LINAGLIPTIN 5 MG TABLET PO SCH (10:05)
[2016-12-25 11:28] LABS: CHOLESTEROL 207 mg/dL (<200); HDL CHOLESTEROL 73 mg/dL (40-60); TRIGLYCERIDES 148 MG/DL (30-150)
--- NOTE | 2016-12-25 13:06 | NUR ---
WOUND CARE CONSULT PATIENT SEEN AND SKIN INTEGRITY ASSESSMENT DONE. PATIENT PRESENTS WITH RIGHT LATERAL FOOT ULCER POA. SHE IS BEING FOLLOWED BY TAB CUTTER DR WARD. THE WOUND MEASURES 0.5CM X 0.5CM X 0.1CM, IS RED AND GRANULATING, NO S/S OF INFECTION WITH SCANT AMOUNT OF SEROUS DRNG. THERE IS NO SMITA WOUND REDNESS NOTED AND NO FURTHER CELLULITIS. PATIENT DOES NOT COMPLAIN OF PAIN TO THE AREA. QUALITY ASSURANCE ADVISOR SPOKE TO DPM AND RECEIVED CONTINUATION ORDERS FOR THIS ULCER. PATIENT WITH CURRENT ISADORA AT 17, IS INDEPENDENT WITH BED MOBILITY AND IS AMBULATING WITH PHYSICAL THERAPY. TREATMENT PLAN DISCUSSED WITH NURSING STAFF. WILL SEE PATIENT PRN DPM IS FOLLOWING PATIENT AT THIS TIME.
--- NOTE | 2016-12-25 13:30 | NUR ---
NSG PT FELL ON SIDE OF BED IN ROOM 122, VITALS TAKEN 98.0, 70, 18 118/59,97%, RESP EVEN UNLABORED, BROTHER CALLED AND DOCTOR KEVIN AND DR CELESTE CALLED. WILL CONTINUE TO MONITOR. NO DISTRESS, ENC PT TO CALL FOR HELP.
[2016-12-25] MEDS: LIDOCAINE 5% PATCH TD SCH (14:15)
[2016-12-25] MEDS: SODIUM HYPOCHLORITE 0.125% 473 ML BOTTLE TP SCH ×2 (14:16→21:59)
--- NOTE | 2016-12-25 14:46 | NUR ---
NSG CJANGED DRSG TO RIGHT FOOT PER PROTOCOL, PT SAIDE SHE HAD NO C/O PAIN, WILL CONTINUE TO MONITOR, ENC PT TO USE CALL LIGHT, BED LOCKED LOW VISUAL CHECKS MADE BY STAFF OFTEN, CALL LIGHT ANSWERED PRN.
[2016-12-25] MEDS: INSULIN REGULAR, HUMAN 300 UNITS/3 ML VIAL SQ PRN ×2 (17:05→22:14)
[2016-12-25] MEDS ORDERED: LIDOCAINE 5% OINT 35.44 GM TUBE TOP PRN (17:30)
--- NOTE | 2016-12-25 17:53 | NUR ---
NSG PT RESTING IN BED, NO C/O PAIN, CALL LIGHT IN REACH, VISUAL CHECKS MADE OFTEN FOR SAFETY.
[2016-12-25 20:00] VITALS: BP 103/59
[2016-12-25] MEDS ORDERED: INSULIN DETEMIR 300 UNIT/3 ML CARTRIDGE SQ SCH (21:00)
[2016-12-25] MEDS: DOCUSATE SODIUM 100 MG CAPSULE PO SCH (21:00)
[2016-12-25] MEDS: ASCORBIC ACID 500 MG TABLET PO SCH (21:54)
[2016-12-25] MEDS: ATORVASTATIN 10 MG TABLET PO SCH (21:55)
[2016-12-25] MEDS: MIRTAZAPINE 15 MG TABLET PO SCH (21:57)
[2016-12-25] MEDS: LATANOPROST OPHT DROP 2.5 ML BOTTLE EACHEYE SCH (21:58)
[2016-12-25] MEDS: ENOXAPARIN SODIUM 40 MG/0.4 ML DISP.SYRIN SQ SCH (22:02)
[2016-12-26] MEDS: PANTOPRAZOLE SODIUM 40 MG TABLET.DR PO SCH (06:51)
[2016-12-26] MEDS: BLOOD SUGAR DIAGNOSTIC 1 EACH STRIP VI SCH ×4 (06:53→21:32)
[2016-12-26 08:06] VITALS: BP 128/75
[2016-12-26] MEDS: GABAPENTIN 100 MG CAPSULE PO SCH ×3 (09:15→17:17)
[2016-12-26] MEDS: ZINC SULFATE 220 MG CAPSULE PO SCH (09:15)
[2016-12-26] MEDS: BENZONATATE 100 MG CAPSULE PO SCH ×3 (09:15→17:16)
[2016-12-26] MEDS: predniSONE 20 MG TABLET PO SCH (09:15)
[2016-12-26] MEDS: DRONEDARONE 400 MG PO SCH ×2 (09:15→17:19)
[2016-12-26] MEDS: ASCORBIC ACID 500 MG TABLET PO SCH ×2 (09:15→21:28)
[2016-12-26] MEDS: FLUOXETINE HCL 20 MG CAPSULE PO SCH (09:16)
[2016-12-26] MEDS: LEVETIRACETAM 500 MG TABLET PO SCH ×2 (09:16→17:16)
[2016-12-26] MEDS: DILTIAZEM HCL 60 MG TABLET PO SCH ×2 (09:16→17:20)
[2016-12-26] MEDS: LINAGLIPTIN 5 MG TABLET PO SCH (09:16)
[2016-12-26] MEDS: FLUTICASONE/VILANTEROL 1 EACH BLST.W.DEV IH SCH (09:17)
[2016-12-26] MEDS: busPIRone 10 MG TABLET PO SCH (09:17)
[2016-12-26] MEDS: LIDOCAINE 5% PATCH TD SCH (09:17)
[2016-12-26] MEDS: MUPIROCIN 2% OINT 22 GM TUBE TP SCH ×2 (09:17→21:36)
[2016-12-26] MEDS: SODIUM HYPOCHLORITE 0.125% 473 ML BOTTLE TP SCH ×2 (09:18→21:44)
[2016-12-26] MEDS: INSULIN REGULAR, HUMAN 300 UNIT/3 ML VIAL SQ PRN ×2 (12:14→17:24)
[2016-12-26] MEDS: ACETAMINOPHEN ES 500 MG TABLET PO PRN (13:10)
--- NOTE | 2016-12-26 16:16 | NUR ---
Patient seen by Dr. Oneil. Notified MD regarding patient's WBC result and blood sugar levels with order to increase levemir SQ to 58 units at HS and do CBC, BMP in am. Orders carried and patient made aware.
--- NOTE | 2016-12-26 18:19 | NUR ---
patient had an uneventful day during shift. PRN extra Tylenol was ordered because patient stated the norco tablets causes her to have respiratory distress. Patient received scheduled medications. Patient nighttime insulin increased due to high blood sugars during the day. Dressing change done.
[2016-12-26] MEDS: DOCUSATE SODIUM 100 MG CAPSULE PO SCH (21:00)
[2016-12-26 21:01] VITALS: BP 113/62
[2016-12-26] MEDS: MIRTAZAPINE 15 MG TABLET PO SCH (21:28)
[2016-12-26] MEDS: ATORVASTATIN 10 MG TABLET PO SCH (21:28)
[2016-12-26] MEDS: LATANOPROST OPHT DROP 2.5 ML BOTTLE EACHEYE SCH (21:28)
[2016-12-26] MEDS: INSULIN REGULAR, HUMAN 300 UNITS/3 ML VIAL SQ PRN (21:34)
[2016-12-26] MEDS: INSULIN DETEMIR 300 UNIT/3 ML CARTRIDGE SQ SCH (21:35)
[2016-12-26] MEDS: ENOXAPARIN SODIUM 40 MG/0.4 ML DISP.SYRIN SQ SCH (21:36)
[2016-12-27] MEDS: PANTOPRAZOLE SODIUM 40 MG TABLET.DR PO SCH (06:51)
[2016-12-27] MEDS: BLOOD SUGAR DIAGNOSTIC 1 EACH STRIP VI SCH ×4 (06:53→21:07)
[2016-12-27 07:43] LABS: BASOPHILS % (AUTO) 0.2 % (0.0-2.0); EOSINOPHILS # (AUTO) 0.2 K/uL (0.0-0.7); EOSINOPHILS % (AUTO) 1.9 % (0.0-7.0); HEMATOCRIT 38.6 % (37-47); HEMOGLOBIN 12.6 G/DL (12.0-16.0); LYMPHOCYTES # (AUTO) 2.5 K/UL (0.8-4.8); MEAN CORPUSCULAR HEMOGLOBIN 28.1 UUG (27.0-31.0); MEAN CORPUSCULAR HGB CONC 33 g/dL (32.0-37.0); MEAN CORPUSCULAR VOLUME 85.8 FL (81.0-99.0); MONOCYTES # (AUTO) 0.7 K/UL (0.1-1.30); MONOCYTES % (AUTO) 7.4 % (0.0-11.0); NEUTROPHILS % (AUTO) 63.5 % (38.5-71.5); PLATELET COUNT (AUTO) 218 K/UL (150-450)
[2016-12-27 07:48] LABS: CARBON DIOXIDE 33 mmol/L (21-32); CHLORIDE 98 mmol/L (98-107); CREATININE 1.3 mg/dL (0.6-1.3); GLUCOSE 160 mg/dL (74-106); POTASSIUM 4.3 mmol/L (3.5-5.1); UREA NITROGEN, BLOOD 30 mg/dL (7-18)
[2016-12-27 07:50] LABS: WHITE BLOOD COUNT (AUTO) 9.4 K/UL (4.0-11.2)
[2016-12-27 08:35] VITALS: BP 93/59
[2016-12-27] MEDS: FLUOXETINE HCL 20 MG CAPSULE PO SCH (08:43)
[2016-12-27] MEDS: GABAPENTIN 100 MG CAPSULE PO SCH ×3 (08:44→17:10)
[2016-12-27] MEDS: ASCORBIC ACID 500 MG TABLET PO SCH ×2 (08:44→21:01)
[2016-12-27] MEDS: LIDOCAINE 5% PATCH TD SCH (08:44)
[2016-12-27] MEDS: LINAGLIPTIN 5 MG TABLET PO SCH (08:44)
[2016-12-27] MEDS: BENZONATATE 100 MG CAPSULE PO SCH ×3 (08:44→17:09)
[2016-12-27] MEDS: ZINC SULFATE 220 MG CAPSULE PO SCH (08:44)
[2016-12-27] MEDS: LEVETIRACETAM 500 MG TABLET PO SCH ×2 (08:44→17:10)
[2016-12-27] MEDS: busPIRone 10 MG TABLET PO SCH (08:44)
[2016-12-27] MEDS: predniSONE 20 MG TABLET PO SCH (08:44)
[2016-12-27] MEDS: DRONEDARONE 400 MG PO SCH ×2 (08:45→17:23)
[2016-12-27] MEDS: MUPIROCIN 2% OINT 22 GM TUBE TP SCH ×2 (08:45→21:01)
[2016-12-27] MEDS: FLUTICASONE/VILANTEROL 1 EACH BLST.W.DEV IH SCH (08:46)
[2016-12-27] MEDS: DILTIAZEM HCL 60 MG TABLET PO SCH ×2 (08:49→17:17)
[2016-12-27] MEDS ORDERED: MAGNESIUM HYDROXIDE 30 ML LIQUID UDC PO PRN (10:15)
[2016-12-27] MEDS: SODIUM HYPOCHLORITE 0.125% 473 ML BOTTLE TP SCH ×2 (10:38→21:20)
[2016-12-27 10:44] LABS: BAND % (MANUAL) 3 % (0-10); LYMPHOCYTES % (MANUAL) 27 % (20-40); METAMYELOCYTES % 1 % (0-1); MONOCYTES % (MANUAL) 10 % (2-10); MYELOCYTES % 1 % (0-0); NEUTROPHILS % (MANUAL) 58 % (42-75)
[2016-12-27] MEDS: ACETAMINOPHEN ES 500 MG TABLET PO PRN ×2 (11:40→21:14)
[2016-12-27] MEDS: INSULIN REGULAR, HUMAN 300 UNIT/3 ML VIAL SQ PRN ×2 (12:32→17:22)
--- NOTE | 2016-12-27 15:56 | NUR ---
PT. OOB WITH P.T. /O.T. AND TOLERATING WELL. WOUND CARE DONE PER ORDER. RED WOUND BED WITH GRANULATION. NO SURROUNDING REDNESS NOTED. NO ACUTE DISTRESS. ON 2L O2 VIA N/C. GOOD APPETITE. REQUESTS SUGAR FREE SNACKS. FAMILY VISIT.
[2016-12-27] MEDS ORDERED: DOCUSATE SODIUM 100 MG CAPSULE PO SCH (21:00)
[2016-12-27] MEDS: DOCUSATE SODIUM 100 MG CAPSULE PO SCH (21:00)
[2016-12-27] MEDS: LATANOPROST OPHT DROP 2.5 ML BOTTLE EACHEYE SCH (21:01)
[2016-12-27] MEDS: ATORVASTATIN 10 MG TABLET PO SCH (21:01)
[2016-12-27] MEDS: MIRTAZAPINE 15 MG TABLET PO SCH (21:01)
[2016-12-27] MEDS: INSULIN DETEMIR 300 UNIT/3 ML CARTRIDGE SQ SCH (21:11)
[2016-12-27] MEDS: ENOXAPARIN SODIUM 40 MG/0.4 ML DISP.SYRIN SQ SCH (21:11)
[2016-12-27] MEDS: INSULIN REGULAR, HUMAN 300 UNITS/3 ML VIAL SQ PRN (21:12)
[2016-12-27 21:45] VITALS: BP 112/65
[2016-12-28] MEDS: PANTOPRAZOLE SODIUM 40 MG TABLET.DR PO SCH (06:32)
[2016-12-28] MEDS: BLOOD SUGAR DIAGNOSTIC 1 EACH STRIP VI SCH ×4 (06:34→20:45)
[2016-12-28] MEDS: ACETAMINOPHEN ES 500 MG TABLET PO PRN ×2 (07:28→20:54)
[2016-12-28 08:00] VITALS: BP 166/90
[2016-12-28] MEDS: LINAGLIPTIN 5 MG TABLET PO SCH (08:18)
[2016-12-28] MEDS: FLUTICASONE/VILANTEROL 1 EACH BLST.W.DEV IH SCH (08:19)
[2016-12-28] MEDS: LIDOCAINE 5% PATCH TD SCH (08:19)
[2016-12-28] MEDS: DILTIAZEM HCL 60 MG TABLET PO SCH ×2 (08:21→17:08)
[2016-12-28] MEDS: BENZONATATE 100 MG CAPSULE PO SCH ×3 (08:21→17:02)
[2016-12-28] MEDS: predniSONE 20 MG TABLET PO SCH (08:21)
[2016-12-28] MEDS: FLUOXETINE HCL 20 MG CAPSULE PO SCH (08:21)
[2016-12-28] MEDS: GABAPENTIN 100 MG CAPSULE PO SCH ×3 (08:21→17:02)
[2016-12-28] MEDS: LEVETIRACETAM 500 MG TABLET PO SCH ×2 (08:21→17:02)
[2016-12-28] MEDS: ZINC SULFATE 220 MG CAPSULE PO SCH (08:21)
[2016-12-28] MEDS: ASCORBIC ACID 500 MG TABLET PO SCH ×2 (08:21→20:42)
[2016-12-28] MEDS: DRONEDARONE 400 MG PO SCH ×2 (08:21→17:09)
[2016-12-28] MEDS: busPIRone 10 MG TABLET PO SCH (08:21)
[2016-12-28] MEDS: MUPIROCIN 2% OINT 22 GM TUBE TP SCH ×2 (08:22→20:56)
[2016-12-28] MEDS: SODIUM HYPOCHLORITE 0.125% 473 ML BOTTLE TP SCH ×2 (08:22→20:56)
[2016-12-28] MEDS: INSULIN REGULAR, HUMAN 300 UNIT/3 ML VIAL SQ PRN ×2 (08:30→17:02)
--- NOTE | 2016-12-28 16:45 | NUR ---
BS 413 per attending RN. Call made out to Natalee Ulloa who is covering today. This RN received callback from Dr. Diamond, received orders to give protocol insulin plus 10 units of regular insulin in addition. No other orders at this time. Patient is stable in bed, no signs of acute distress or symptoms of hyperglycemia noted. Information passed on to attending RN. Safety precautions maintained.
--- NOTE | 2016-12-28 18:47 | NUR ---
Patient had a good day today throughout shift. Patient blood sugar for dinner was 413. Charge Nurse called the Dr and ordered 10 extra units of insulin. Patient stable no symptoms of hyperglycemia. Patient didn't receive insulin at lunch due to blood sugar being 106.
[2016-12-28 20:00] VITALS: BP 100/52
[2016-12-28] MEDS: LATANOPROST OPHT DROP 2.5 ML BOTTLE EACHEYE SCH (20:42)
[2016-12-28] MEDS: ATORVASTATIN 10 MG TABLET PO SCH (20:42)
[2016-12-28] MEDS: MIRTAZAPINE 15 MG TABLET PO SCH (20:42)
[2016-12-28] MEDS: ENOXAPARIN SODIUM 40 MG/0.4 ML DISP.SYRIN SQ SCH (20:45)
[2016-12-28] MEDS: INSULIN DETEMIR 300 UNIT/3 ML CARTRIDGE SQ SCH (20:46)
[2016-12-28] MEDS: INSULIN REGULAR, HUMAN 300 UNITS/3 ML VIAL SQ PRN (20:48)
[2016-12-28] MEDS: DOCUSATE SODIUM 100 MG CAPSULE PO SCH (20:56)
[2016-12-29] MEDS: ACETAMINOPHEN ES 500 MG TABLET PO PRN ×2 (06:06→12:01)
[2016-12-29] MEDS: PANTOPRAZOLE SODIUM 40 MG TABLET.DR PO SCH (06:06)
[2016-12-29] MEDS: BLOOD SUGAR DIAGNOSTIC 1 EACH STRIP VI SCH ×4 (06:08→23:34)
[2016-12-29] MEDS: LEVETIRACETAM 500 MG TABLET PO SCH ×2 (08:41→17:08)
[2016-12-29] MEDS: ASCORBIC ACID 500 MG TABLET PO SCH ×2 (08:42→23:34)
[2016-12-29] MEDS: GABAPENTIN 100 MG CAPSULE PO SCH ×3 (08:42→17:08)
[2016-12-29] MEDS: busPIRone 10 MG TABLET PO SCH (08:42)
[2016-12-29] MEDS: DILTIAZEM HCL 60 MG TABLET PO SCH ×2 (08:42→17:08)
[2016-12-29] MEDS: BENZONATATE 100 MG CAPSULE PO SCH ×3 (08:42→17:08)
[2016-12-29] MEDS: FLUTICASONE/VILANTEROL 1 EACH BLST.W.DEV IH SCH (08:43)
[2016-12-29] MEDS: LIDOCAINE 5% PATCH TD SCH (08:43)
[2016-12-29] MEDS: DRONEDARONE 400 MG PO SCH ×2 (08:43→17:07)
[2016-12-29] MEDS: LINAGLIPTIN 5 MG TABLET PO SCH (08:43)
[2016-12-29] MEDS: predniSONE 20 MG TABLET PO SCH (08:43)
[2016-12-29] MEDS: ZINC SULFATE 220 MG CAPSULE PO SCH (08:43)
[2016-12-29] MEDS: FLUOXETINE HCL 20 MG CAPSULE PO SCH (08:43)
[2016-12-29] MEDS: SODIUM HYPOCHLORITE 0.125% 473 ML BOTTLE TP SCH ×2 (08:44→23:41)
[2016-12-29] MEDS: MUPIROCIN 2% OINT 22 GM TUBE TP SCH ×2 (08:44→23:46)
[2016-12-29 11:09] VITALS: BP 127/62
[2016-12-29] MEDS: INSULIN REGULAR, HUMAN 300 UNIT/3 ML VIAL SQ PRN ×2 (12:04→17:12)
--- NOTE | 2016-12-29 15:20 | NUR ---
Teachers' Aide SW [facility] needs and provide support. The patient is a 71 year old female who was admitted for functional decline and impaired mobility. The patient has a history of COPD. The patient stated that she has not been walking for about 1 year due to weakness and history of multiple falls. The patient was laying in her bed during the assessment.She was calm and cooperative during the interview. The patient's mood was somewhat depressed. She stated that she has PTSD. The patient stated that her sleep and appetite have been good . Per pt, she lives at [facility]. The patient acknowledged her condition and the need for intervention. The patient stated that she has strong social support from her brother/DPOA Sky Gonzalez ( . Social history: The patient stated that she was born in [place], [place] and moved to [place] when she was 6 years old. The patient stated that she was raised by her aunt. The patient stated that she completed the 8th grade and was no longer to complete school because she had a lot of seizures. The patient stated she is restorationism. The patient stated that she is a . She stated she was for 37 years and her 13 years ago. The patient stated that she has a daughter that lives in [place] but that she has not talked to her for many years. The patient denied any history of abuse or domestic violence. The patient denied any history of drug or alcohol abuse. The patient stated that she will return to [facility] upon discharge but that she would like referrals for assisted living options. SW engaged in active listening and provided supportive counseling during the interview to address patient's depressive symptoms related to her decline in functioning. SW will continue to address issues of loss related to recent hospitalization. SW will encourage compliance with rehab goals. SW will be available as needed.
--- NOTE | 2016-12-29 18:58 | NUR ---
Patient had a good day today. AM insulin was not given due to pt blood sugar being 109. Patient received PRN Tylenol.
--- NOTE | 2016-12-29 19:30 | NUR ---
RECEIVED PATIENT AWAKE, ALERT, AND ORIENTED X3. FOLLOWS COMMANDS. ON OXYGEN AT 2 LPM/NASAL CANNULA WITHOUT C/O RESPIRATORY DISTRESS AT THIS TIME. ON CHRONIC OXYGEN THERAPY AT HOME. NO C/O DISCOMFORT AT THIS TIME. CALL LIGHT WITHIN REACH. INSTRUCTED TO CALL RN WHEN SHE WANTS TO GET OOB TO BSC AND NOT TO NOT GET UP OOB ON HER OWN. VERBALIZES GOOD UNDERSTANDING OF THIS REQUEST. BED ALARM ON AAT. RESTING IN NO APPARENT DISTRESS.
[2016-12-29 20:04] VITALS: BP 121/54
--- NOTE | 2016-12-29 21:35 | NUR ---
REPORT GIVEN TO KHAI SCHWARZ. CARE OF THIS PATIENT HANDED OFF TO CHONG AT THIS TIME.
[2016-12-29] MEDS: ENOXAPARIN SODIUM 40 MG/0.4 ML DISP.SYRIN SQ SCH (23:35)
[2016-12-29] MEDS: INSULIN REGULAR, HUMAN 300 UNITS/3 ML VIAL SQ PRN (23:37)
[2016-12-29] MEDS: INSULIN DETEMIR 300 UNIT/3 ML CARTRIDGE SQ SCH (23:38)
[2016-12-29] MEDS: MIRTAZAPINE 15 MG TABLET PO SCH (23:39)
[2016-12-29] MEDS: ATORVASTATIN 10 MG TABLET PO SCH (23:39)
[2016-12-29] MEDS: LATANOPROST OPHT DROP 2.5 ML BOTTLE EACHEYE SCH (23:39)
[2016-12-29] MEDS: DOCUSATE SODIUM 100 MG CAPSULE PO SCH (23:39)
[2016-12-30] MEDS: PANTOPRAZOLE SODIUM 40 MG TABLET.DR PO SCH (07:14)
[2016-12-30] MEDS: BLOOD SUGAR DIAGNOSTIC 1 EACH STRIP VI SCH ×4 (07:20→21:27)
--- NOTE | 2016-12-30 07:29 | NUR ---
A.M. Blood glucose level of 45. [place] juice given & Endorsed to oncoming nurse for continuity of care
[2016-12-30] MEDS: ACETAMINOPHEN ES 500 MG TABLET PO PRN (07:47)
[2016-12-30 08:00] VITALS: BP 135/62
[2016-12-30] MEDS: LINAGLIPTIN 5 MG TABLET PO SCH (08:49)
[2016-12-30] MEDS: DRONEDARONE 400 MG PO SCH ×2 (08:49→17:18)
[2016-12-30] MEDS: FLUTICASONE/VILANTEROL 1 EACH BLST.W.DEV IH SCH (08:49)
[2016-12-30] MEDS: FLUOXETINE HCL 20 MG CAPSULE PO SCH (08:50)
[2016-12-30] MEDS: predniSONE 20 MG TABLET PO SCH (08:50)
[2016-12-30] MEDS: ASCORBIC ACID 500 MG TABLET PO SCH ×2 (08:50→21:23)
[2016-12-30] MEDS: GABAPENTIN 100 MG CAPSULE PO SCH ×3 (08:50→17:18)
[2016-12-30] MEDS: LEVETIRACETAM 500 MG TABLET PO SCH ×2 (08:50→17:18)
[2016-12-30] MEDS: BENZONATATE 100 MG CAPSULE PO SCH ×3 (08:50→17:18)
[2016-12-30] MEDS: busPIRone 10 MG TABLET PO SCH (08:50)
[2016-12-30] MEDS: ZINC SULFATE 220 MG CAPSULE PO SCH (08:50)
[2016-12-30] MEDS: LIDOCAINE 5% PATCH TD SCH (08:51)
[2016-12-30] MEDS: DILTIAZEM HCL 60 MG TABLET PO SCH ×2 (08:51→17:20)
[2016-12-30] MEDS: MUPIROCIN 2% OINT 22 GM TUBE TP SCH ×2 (08:54→21:24)
[2016-12-30] MEDS: SODIUM HYPOCHLORITE 0.125% 473 ML BOTTLE TP SCH ×2 (08:54→21:24)
[2016-12-30] MEDS: INSULIN REGULAR, HUMAN 300 UNIT/3 ML VIAL SQ PRN ×2 (12:17→17:21)
--- NOTE | 2016-12-30 14:44 | NUR ---
REHAB TEAM CONFERENCE 12/30/16
--- NOTE | 2016-12-30 18:45 | NUR ---
Patient didnt receive am insulin due to blood sugar being 45 set builder nurse gave orange juice and pudding. Blood sugar was 214 after recheck. Patient worked with PT/OT today.
[2016-12-30 20:09] VITALS: BP 131/63
[2016-12-30] MEDS: LATANOPROST OPHT DROP 2.5 ML BOTTLE EACHEYE SCH (21:22)
[2016-12-30] MEDS: ATORVASTATIN 10 MG TABLET PO SCH (21:23)
[2016-12-30] MEDS: MIRTAZAPINE 15 MG TABLET PO SCH (21:23)
[2016-12-30] MEDS: DOCUSATE SODIUM 100 MG CAPSULE PO SCH (21:23)
[2016-12-30] MEDS: INSULIN REGULAR, HUMAN 300 UNITS/3 ML VIAL SQ PRN (21:30)
[2016-12-30] MEDS: INSULIN DETEMIR 300 UNIT/3 ML CARTRIDGE SQ SCH (21:35)
[2016-12-30] MEDS: ENOXAPARIN SODIUM 40 MG/0.4 ML DISP.SYRIN SQ SCH (21:36)
[2016-12-31] MEDS: PANTOPRAZOLE SODIUM 40 MG TABLET.DR PO SCH (06:52)
[2016-12-31] MEDS: BLOOD SUGAR DIAGNOSTIC 1 EACH STRIP VI SCH ×4 (06:52→21:19)
[2016-12-31 08:25] VITALS: BP 93/49
[2016-12-31] MEDS: LIDOCAINE 5% PATCH TD SCH (08:25)
[2016-12-31] MEDS: FLUTICASONE/VILANTEROL 1 EACH BLST.W.DEV IH SCH (08:25)
[2016-12-31] MEDS: DRONEDARONE 400 MG PO SCH ×2 (08:26→16:52)
[2016-12-31] MEDS: ZINC SULFATE 220 MG CAPSULE PO SCH (08:26)
[2016-12-31] MEDS: LINAGLIPTIN 5 MG TABLET PO SCH (08:26)
[2016-12-31] MEDS: FLUOXETINE HCL 20 MG CAPSULE PO SCH (08:26)
[2016-12-31] MEDS: predniSONE 20 MG TABLET PO SCH (08:26)
[2016-12-31] MEDS: GABAPENTIN 100 MG CAPSULE PO SCH ×3 (08:26→16:52)
[2016-12-31] MEDS: BENZONATATE 100 MG CAPSULE PO SCH ×3 (08:27→16:52)
[2016-12-31] MEDS: LEVETIRACETAM 500 MG TABLET PO SCH ×2 (08:27→16:52)
[2016-12-31] MEDS: busPIRone 10 MG TABLET PO SCH (08:27)
[2016-12-31] MEDS: ASCORBIC ACID 500 MG TABLET PO SCH ×2 (08:27→21:14)
[2016-12-31] MEDS: DILTIAZEM HCL 60 MG TABLET PO SCH ×2 (08:31→16:57)
[2016-12-31] MEDS: MUPIROCIN 2% OINT 22 GM TUBE TP SCH ×2 (08:36→21:33)
[2016-12-31] MEDS: SODIUM HYPOCHLORITE 0.125% 473 ML BOTTLE TP SCH ×2 (08:36→21:33)
[2016-12-31] MEDS: ACETAMINOPHEN ES 500 MG TABLET PO PRN ×3 (08:48→23:03)
[2016-12-31] MEDS: INSULIN REGULAR, HUMAN 300 UNIT/3 ML VIAL SQ PRN ×2 (12:06→16:54)
--- NOTE | 2016-12-31 18:48 | NUR ---
pt continued to not adhere to diet. pt continues to state that she knows what shes doing and its sugar free ice cream. blood sugar remains high and covered with insulin. wound shows healing and applied medications. pt attended to for fall precautions. all medications were taken. pt refuses stool softeners. no signs of impaction or constipation. pt complains of back pain and applied lidocaine patches on back. pt breathing o2 sat wnl. no signs of vte. will endorse new orders to security shift manager nurse.
[2016-12-31 20:27] VITALS: BP 109/55
[2016-12-31] MEDS: ATORVASTATIN 10 MG TABLET PO SCH (21:14)
[2016-12-31] MEDS: DOCUSATE SODIUM 100 MG CAPSULE PO SCH (21:14)
[2016-12-31] MEDS: MIRTAZAPINE 15 MG TABLET PO SCH (21:15)
[2016-12-31] MEDS: ENOXAPARIN SODIUM 40 MG/0.4 ML DISP.SYRIN SQ SCH (21:17)
[2016-12-31] MEDS: INSULIN DETEMIR 300 UNIT/3 ML CARTRIDGE SQ SCH (21:27)
[2016-12-31] MEDS: INSULIN REGULAR, HUMAN 300 UNITS/3 ML VIAL SQ PRN (21:30)
[2016-12-31] MEDS: LATANOPROST OPHT DROP 2.5 ML BOTTLE EACHEYE SCH (21:33)
[2017-01-01] MEDS: PANTOPRAZOLE SODIUM 40 MG TABLET.DR PO SCH (06:16)
--- NOTE | 2017-01-01 06:33 | NUR ---
Pt had an uneventful night. AAO x4. Able to make needs known. Afebrile. V/S stable. Pt denies any pain/discomfort. Will endorse to am shift nurse.
[2017-01-01] MEDS: BLOOD SUGAR DIAGNOSTIC 1 EACH STRIP VI SCH ×4 (07:34→21:45)
[2017-01-01 08:00] VITALS: BP 120/61
[2017-01-01] MEDS: FLUTICASONE/VILANTEROL 1 EACH BLST.W.DEV IH SCH (08:45)
[2017-01-01] MEDS: LIDOCAINE 5% PATCH TD SCH (08:45)
[2017-01-01] MEDS: INSULIN REGULAR, HUMAN 300 UNIT/3 ML VIAL SQ PRN ×3 (08:45→16:57)
[2017-01-01] MEDS: LINAGLIPTIN 5 MG TABLET PO SCH (08:45)
[2017-01-01] MEDS: DRONEDARONE 400 MG PO SCH ×2 (08:45→17:01)
[2017-01-01] MEDS: DILTIAZEM HCL 60 MG TABLET PO SCH ×2 (08:46→17:10)
[2017-01-01] MEDS: GABAPENTIN 100 MG CAPSULE PO SCH ×3 (08:46→16:59)
[2017-01-01] MEDS: FLUOXETINE HCL 20 MG CAPSULE PO SCH (08:46)
[2017-01-01] MEDS: ASCORBIC ACID 500 MG TABLET PO SCH ×2 (08:46→21:43)
[2017-01-01] MEDS: busPIRone 10 MG TABLET PO SCH (08:46)
[2017-01-01] MEDS: BENZONATATE 100 MG CAPSULE PO SCH ×3 (08:46→16:59)
[2017-01-01] MEDS: ZINC SULFATE 220 MG CAPSULE PO SCH (08:46)
[2017-01-01] MEDS: LEVETIRACETAM 500 MG TABLET PO SCH ×2 (08:46→16:59)
[2017-01-01] MEDS: predniSONE 20 MG TABLET PO SCH (08:47)
[2017-01-01] MEDS: SODIUM HYPOCHLORITE 0.125% 473 ML BOTTLE TP SCH ×2 (08:48→21:00)
[2017-01-01] MEDS: MUPIROCIN 2% OINT 22 GM TUBE TP SCH ×2 (08:48→21:00)
--- NOTE | 2017-01-01 09:48 | NUR ---
pt had elevated blood sugar. pt given insulin and other meds as ordered. no signs of acute distress. no new injuries. will continue to monitor.
[2017-01-01] MEDS: ACETAMINOPHEN ES 500 MG TABLET PO PRN ×2 (10:51→16:59)
--- NOTE | 2017-01-01 11:26 | NUR ---
provided wound care for diabetic foot ulcer. wound is improving and less tunneling noted. redness on the edges. no signs of infection. tylenol given for pain. will reassess for complications.
--- NOTE | 2017-01-01 16:45 | NUR ---
pt continues to have pain radiating in the neck. pt instructed to reposition and refused. pt blood sugar checked and was at 424. will give meds as prescribed and reassess for pain.
--- NOTE | 2017-01-01 17:55 | NUR ---
pt continues to be non compliant on diet. pt continues to ask for pudding and ice creams because she states that it helps with her indigestion. offered meds but pt refused and states that she knows what she is doing. pt continues to refuse norco. pt pain at six. given tylenol. pt states that pain subsides. pt ulcer seen to be improving. notified pt about the need for more multaq home medication. pt states that she will notify member about more home meds.
[2017-01-01 20:24] VITALS: BP 122/64
[2017-01-01] MEDS: ENOXAPARIN SODIUM 40 MG/0.4 ML DISP.SYRIN SQ SCH (21:00)
[2017-01-01] MEDS: LATANOPROST OPHT DROP 2.5 ML BOTTLE EACHEYE SCH (21:43)
[2017-01-01] MEDS: MIRTAZAPINE 15 MG TABLET PO SCH (21:43)
[2017-01-01] MEDS: ATORVASTATIN 10 MG TABLET PO SCH (21:44)
[2017-01-01] MEDS: DOCUSATE SODIUM 100 MG CAPSULE PO SCH (21:44)
[2017-01-01] MEDS: INSULIN REGULAR, HUMAN 300 UNITS/3 ML VIAL SQ PRN (21:48)
[2017-01-01] MEDS: INSULIN DETEMIR 300 UNIT/3 ML CARTRIDGE SQ SCH (21:52)
[2017-01-02] MEDS: PANTOPRAZOLE SODIUM 40 MG TABLET.DR PO SCH (06:55)
[2017-01-02] MEDS: INSULIN REGULAR, HUMAN 300 UNIT/3 ML VIAL SQ PRN ×3 (06:58→19:26)
[2017-01-02] MEDS: BLOOD SUGAR DIAGNOSTIC 1 EACH STRIP VI SCH ×3 (07:10→21:42)
--- NOTE | 2017-01-02 08:00 | NUR ---
HANDOFF REPORT LAST HOUR WITH NIGHT NURSE.
[2017-01-02 08:05] VITALS: BP 143/79
[2017-01-02] MEDS: LIDOCAINE 5% PATCH TD SCH (09:23)
[2017-01-02] MEDS: MUPIROCIN 2% OINT 22 GM TUBE TP SCH ×2 (09:24→21:19)
[2017-01-02] MEDS: FLUOXETINE HCL 20 MG CAPSULE PO SCH (09:24)
[2017-01-02] MEDS: busPIRone 10 MG TABLET PO SCH (09:24)
[2017-01-02] MEDS: ZINC SULFATE 220 MG CAPSULE PO SCH (09:24)
[2017-01-02] MEDS: LINAGLIPTIN 5 MG TABLET PO SCH (09:24)
[2017-01-02] MEDS: GABAPENTIN 100 MG CAPSULE PO SCH ×3 (09:25→19:14)
[2017-01-02] MEDS: ASCORBIC ACID 500 MG TABLET PO SCH ×2 (09:25→21:13)
[2017-01-02] MEDS: DILTIAZEM HCL 60 MG TABLET PO SCH ×2 (09:28→19:20)
[2017-01-02] MEDS: SODIUM HYPOCHLORITE 0.125% 473 ML BOTTLE TP SCH ×2 (09:29→21:19)
[2017-01-02] MEDS: FLUTICASONE/VILANTEROL 1 EACH BLST.W.DEV IH SCH (09:29)
[2017-01-02] MEDS: predniSONE 20 MG TABLET PO SCH (09:29)
[2017-01-02] MEDS: DRONEDARONE 400 MG PO SCH ×2 (09:29→19:20)
[2017-01-02] MEDS: BENZONATATE 100 MG CAPSULE PO SCH ×3 (09:29→19:14)
[2017-01-02] MEDS: LEVETIRACETAM 500 MG TABLET PO SCH ×2 (09:29→19:14)
--- NOTE | 2017-01-02 10:45 | NUR ---
PATIENT ASSIST TO AND FROM SHOWER. GIVEN CARE ITEMS REQUESTED.
--- NOTE | 2017-01-02 12:45 | NUR ---
PATIENT ROUNDS AND BLOOD GLUCOSE CHECK.
[2017-01-02] MEDS: ACETAMINOPHEN ES 500 MG TABLET PO PRN ×2 (13:13→19:20)
--- NOTE | 2017-01-02 14:15 | NUR ---
PATIENT ROUNDS. NEEDS MET AT THIS TIME.
--- NOTE | 2017-01-02 16:15 | NUR ---
PATIENT ROUNDS. REQUESTING ICE CREAM AND PUDDING WITH SODA. NOT PROVIDED.
--- NOTE | 2017-01-02 18:16 | NUR ---
HANDOFF REPORT FOR NIGHT NURSE.
[2017-01-02 20:08] VITALS: BP 110/50
[2017-01-02] MEDS: DOCUSATE SODIUM 100 MG CAPSULE PO SCH (21:00)
[2017-01-02] MEDS: MIRTAZAPINE 15 MG TABLET PO SCH (21:13)
[2017-01-02] MEDS: ATORVASTATIN 10 MG TABLET PO SCH (21:13)
[2017-01-02] MEDS: ENOXAPARIN SODIUM 40 MG/0.4 ML DISP.SYRIN SQ SCH (21:16)
[2017-01-02] MEDS: LATANOPROST OPHT DROP 2.5 ML BOTTLE EACHEYE SCH (21:17)
[2017-01-02] MEDS: INSULIN DETEMIR 300 UNIT/3 ML CARTRIDGE SQ SCH (21:32)
[2017-01-02] MEDS: INSULIN REGULAR, HUMAN 300 UNITS/3 ML VIAL SQ PRN (21:36)
[2017-01-03] MEDS: PANTOPRAZOLE SODIUM 40 MG TABLET.DR PO SCH (06:10)
--- NOTE | 2017-01-03 06:33 | NUR ---
AAOX4 OOB TO BEDSIDE COMMODE VOIDING WELL. OXYGEN @2L VIA NASAL CANNULA. 99% PULSE OX DRESSING CHANGED TO RIGHT FOOT WOUND WITH DAKINS SOLUTION AND APPLY BACTROBAN OINTMENT. PATIENT NON COMPLIANT WITH SNACKS, ALWAYS ASKING FOR PUDDING AND DIET COKE. BLOOD SUGAR CHECKED 303, INSULIN COVERAGE GIVEN. DENIES ANY PAIN NOR ANY DISCOMFORT. WILL MONITOR PATIENT. ATTENDED TO NEEDS PROMPTLY. CALL CHERRY WITHIN REACH. FALL PRECAUTIONS MAINTAINED.TOLERATED PO MEDS WELL.
[2017-01-03] MEDS: BLOOD SUGAR DIAGNOSTIC 1 EACH STRIP VI SCH ×4 (07:00→21:50)
[2017-01-03 07:25] VITALS: BP 122/69
[2017-01-03 08:50] VITALS: BP 126/76
[2017-01-03] MEDS ORDERED: predniSONE 20 MG TABLET PO SCH (09:00)
[2017-01-03] MEDS: ZINC SULFATE 220 MG CAPSULE PO SCH (09:43)
[2017-01-03] MEDS: DILTIAZEM HCL 60 MG TABLET PO SCH ×2 (09:43→17:08)
[2017-01-03] MEDS: busPIRone 10 MG TABLET PO SCH (09:43)
[2017-01-03] MEDS: BENZONATATE 100 MG CAPSULE PO SCH ×3 (09:43→17:06)
[2017-01-03] MEDS: ASCORBIC ACID 500 MG TABLET PO SCH ×2 (09:43→21:52)
[2017-01-03] MEDS: GABAPENTIN 100 MG CAPSULE PO SCH ×3 (09:43→17:05)
[2017-01-03] MEDS: LEVETIRACETAM 500 MG TABLET PO SCH ×2 (09:43→17:06)
[2017-01-03] MEDS: predniSONE 5 MG TABLET PO SCH (09:44)
[2017-01-03] MEDS: LIDOCAINE 5% PATCH TD SCH (09:44)
[2017-01-03] MEDS: FLUOXETINE HCL 20 MG CAPSULE PO SCH (09:44)
[2017-01-03] MEDS: MUPIROCIN 2% OINT 22 GM TUBE TP SCH ×2 (09:45→21:51)
[2017-01-03] MEDS: SODIUM HYPOCHLORITE 0.125% 473 ML BOTTLE TP SCH ×2 (09:45→21:51)
[2017-01-03] MEDS: FLUTICASONE/VILANTEROL 1 EACH BLST.W.DEV IH SCH (09:45)
[2017-01-03] MEDS: DRONEDARONE 400 MG PO SCH ×2 (09:46→17:08)
[2017-01-03] MEDS: LINAGLIPTIN 5 MG TABLET PO SCH (09:49)
--- NOTE | 2017-01-03 12:26 | NUR ---
DAILY NOTE AFTERNOON BLOOD SUGAR 263 NOT 286 DOCUMENTED. SLIDING SCALE COVERAGE GIVEN
[2017-01-03] MEDS: INSULIN REGULAR, HUMAN 300 UNIT/3 ML VIAL SQ PRN ×2 (13:18→17:22)
[2017-01-03] MEDS: ACETAMINOPHEN ES 500 MG TABLET PO PRN ×2 (17:05→23:46)
[2017-01-03] MEDS ORDERED: METHYL SALICYLATE/MENTHOL CREAM 28 GM TUBE TOP PRN (17:30)
[2017-01-03 20:00] VITALS: BP 108/54
[2017-01-03] MEDS: LATANOPROST OPHT DROP 2.5 ML BOTTLE EACHEYE SCH (21:51)
[2017-01-03] MEDS: ATORVASTATIN 10 MG TABLET PO SCH (21:52)
[2017-01-03] MEDS: MIRTAZAPINE 15 MG TABLET PO SCH (21:52)
[2017-01-03] MEDS: DOCUSATE SODIUM 100 MG CAPSULE PO SCH (21:52)
[2017-01-03] MEDS: ENOXAPARIN SODIUM 40 MG/0.4 ML DISP.SYRIN SQ SCH (21:59)
[2017-01-03] MEDS: INSULIN DETEMIR 300 UNIT/3 ML CARTRIDGE SQ SCH (21:59)
[2017-01-03] MEDS: INSULIN REGULAR, HUMAN 300 UNITS/3 ML VIAL SQ PRN (22:21)
[2017-01-04] MEDS: BLOOD SUGAR DIAGNOSTIC 1 EACH STRIP VI SCH ×2 (06:38→12:35)
[2017-01-04] MEDS: PANTOPRAZOLE SODIUM 40 MG TABLET.DR PO SCH (06:39)
--- NOTE | 2017-01-04 07:07 | NUR ---
Patient received from shift manager, resting comfortably in bed. No signs of acute distress noted, VS WNL. No verbalized or observed needs at this time. Blood sugar 128 this AM by shift manager RN, no insulin coverage required. Discharge plan of care to be reviewed with bilingual case manager today. Will follow up discharge needs today. Room was thoroughly cleaned by night BORDEREAU CLERK. Safety and fall precautions maintained. Call light within reach.
[2017-01-04] MEDS: predniSONE 5 MG TABLET PO SCH (08:53)
[2017-01-04] MEDS: BENZONATATE 100 MG CAPSULE PO SCH ×2 (08:53→12:37)
[2017-01-04] MEDS: ASCORBIC ACID 500 MG TABLET PO SCH (08:53)
[2017-01-04] MEDS: ZINC SULFATE 220 MG CAPSULE PO SCH (08:53)
[2017-01-04 08:54] VITALS: BP 122/69
[2017-01-04] MEDS: FLUOXETINE HCL 20 MG CAPSULE PO SCH (08:54)
[2017-01-04] MEDS: busPIRone 10 MG TABLET PO SCH (08:54)
[2017-01-04] MEDS: DILTIAZEM HCL 60 MG TABLET PO SCH (08:54)
[2017-01-04] MEDS: GABAPENTIN 100 MG CAPSULE PO SCH ×2 (08:54→12:37)
[2017-01-04] MEDS: LEVETIRACETAM 500 MG TABLET PO SCH (08:54)
[2017-01-04] MEDS: LINAGLIPTIN 5 MG TABLET PO SCH (08:55)
[2017-01-04] MEDS: FLUTICASONE/VILANTEROL 1 EACH BLST.W.DEV IH SCH (08:55)
[2017-01-04] MEDS: LIDOCAINE 5% PATCH TD SCH (08:55)
[2017-01-04] MEDS: DRONEDARONE 400 MG PO SCH (08:55)
[2017-01-04] MEDS: ACETAMINOPHEN ES 500 MG TABLET PO PRN (09:04)
[2017-01-04] MEDS: MUPIROCIN 2% OINT 22 GM TUBE TP SCH (09:04)
[2017-01-04] MEDS: SODIUM HYPOCHLORITE 0.125% 473 ML BOTTLE TP SCH (09:05)
[2017-01-04] MEDS: INSULIN REGULAR, HUMAN 300 UNIT/3 ML VIAL SQ PRN (12:36)
--- NOTE | 2017-01-04 16:46 | NUR ---
Discharge orders received from David Sherwood. Patient in stable condition, no signs of acute distress noted. VS WNL, on 2L oxygen via NC. All discharge instructions and belongings verified with patient. Information given to patient's [facility], [facility]'s DON. Patient picked up by jack in ambulance. No incidents, all safety precautions maintained. Medications to be verified by medical MD with [employer], will be sent electronically to patient's pharmacy. No other verbalized needs by patient at this time. Patient safely transferred off unit.
[2017-01-04] MEDS ORDERED: LIDO35.4 TOP (17:15)
[2017-01-04] MEDS ORDERED: LATA2.5D2 EACHEYE (17:15)
[2017-01-04] MEDS ORDERED: FLUT1BLS IH (17:15)
[2017-01-04] MEDS ORDERED: DRON400T PO (17:15)
[2017-01-04] MEDS ORDERED: ATOR10TA PO (17:15)
[2017-01-04] MEDS ORDERED: LINA5TAB PO (17:15)
[2017-01-04] MEDS ORDERED: DOCU100C36 PO (17:15)
[2017-01-04] MEDS ORDERED: FLUO-120 PO (17:15)
[2017-01-04] MEDS ORDERED: ALBU2.5V7 IH (17:15)
[2017-01-04] MEDS ORDERED: ZINC220C8 PO (17:15)
[2017-01-04] MEDS ORDERED: ACET-2605 PO (17:15)
[2017-01-04] MEDS ORDERED: PANT40TA2 PO (17:15)
[2017-01-04] MEDS ORDERED: MENT71OI TOP (17:15)
[2017-01-04] MEDS ORDERED: PRED-170 PO (17:15)
[2017-01-04] MEDS ORDERED: MAGN400O6 PO (17:15)
[2017-01-04] MEDS ORDERED: GABA-532 PO (17:15)
[2017-01-04] MEDS ORDERED: MIRT15TA7 PO (17:15)
[2017-01-04] MEDS ORDERED: ASCO500T9 PO (17:15)
[2017-01-04] MEDS ORDERED: SODI473S8 TP (17:15)
[2017-01-04] MEDS ORDERED: IPRA0.2S6 NEB (17:15)
[2017-01-04] MEDS ORDERED: INSU100I19 SQ (17:15)
[2017-01-04] MEDS ORDERED: LEVE500T9 PO (17:15)
[2017-01-04] MEDS ORDERED: [UNRECOGNIZED DRUG - CODE] PO (17:15)
[2017-01-04] MEDS ORDERED: BUSP10TA3 PO (17:15)
[2017-01-04] MEDS ORDERED: LIDO30AD10 TD (17:15)
[2017-01-04] MEDS ORDERED: DILT60TA35 PO (17:15)
== END 2017-01-04 16:46 | disposition home health service (06) | DRG 190 ==
PROVIDERS: ADMIT Physical Medicine & Rehabilitation Pain Medicine; ATTEND Physical Medicine & Rehabilitation Pain Medicine
DX: J44.1 Chronic obstructive pulmonary disease with (acute) exacerbation (principal); E43 Unspecified severe protein-calorie malnutrition; E11.22 Type 2 diabetes mellitus with diabetic chronic kidney disease; E11.621 Type 2 diabetes mellitus with foot ulcer; E87.1 Hypo-osmolality and hyponatremia; L03.115 Cellulitis of right lower limb; E11.65 Type 2 diabetes mellitus with hyperglycemia; I48.91 Unspecified atrial fibrillation; L03.116 Cellulitis of left lower limb; L97.929 Non-pressure chronic ulcer of unspecified part of left lower leg with unspecified severity; G89.29 Other chronic pain; M54.5 Low back pain; R26.9 Unspecified abnormalities of gait and mobility; E11.622 Type 2 diabetes mellitus with other skin ulcer; F32.9 Major depressive disorder, single episode, unspecified; F43.10 Post-traumatic stress disorder, unspecified; G40.909 Epilepsy, unspecified, not intractable, without status epilepticus; N18.9 Chronic kidney disease, unspecified; I12.9 Hypertensive chronic kidney disease with stage 1 through stage 4 chronic kidney disease, or unspecified chronic kidney disease; I73.9 Peripheral vascular disease, unspecified; I77.1 Stricture of artery; K21.9 Gastro-esophageal reflux disease without esophagitis; L97.519 Non-pressure chronic ulcer of other part of right foot with unspecified severity; M47.897 Other spondylosis, lumbosacral region; Z86.19 Personal history of other infectious and parasitic diseases; Z86.72 Personal history of thrombophlebitis; Z87.891 Personal history of nicotine dependence; E66.9 Obesity, unspecified; Z68.27 Body mass index [BMI] 27.0-27.9, adult; M47.816 Spondylosis without myelopathy or radiculopathy, lumbar region; I69.331 Monoplegia of upper limb following cerebral infarction affecting right dominant side; Z88.6 Allergy status to analgesic agent; Z88.2 Allergy status to sulfonamides; Z88.8 Allergy status to other drugs, medicaments and biological substances
CPT/HCPCS: 36415; 73610; 73630; 83735; 84100; 85025; 92610; 97110; 97112; 97116; 97530; 97535; A4663; J1650; J1815; J2405; J7512

== ENCOUNTER 2017-10-24 18:56 | Inpatient (IN) | payer MEDICARE, MEDICAID ==
[~2017-10-24] VITALS: Ht 170.2 cm; Wt 89.4 kg
[~2017-10-24 18:56] MED LIST changes: +ACET-2605 PO; -ACET1TAB17 PO; -ALBU18HF2 IH; -ALBU2.5V38 IH; +ALBU2.5V7 IH; +ASCO500T9 PO; +ATOR10TA PO; +BENZ-38 PO; -BENZ1LOZ58 MM; -BUDE10.2 IH; -DILT60TA3 PO; +DILT60TA35 PO; +DOCU100C36 PO; -ESOM40CA PO; +FLUO-120 PO; -FLUO40CA8 PO; -FURO-151 PO; -HUMULIN R SQ; -HYDR-3026 PO; -HYDR-3326 PO; -HYDR-552 PO; +INSU100I19 SQ; -INSU100V7 SQ; +LATA2.5D2 EACHEYE; -LEVE500T20 PO; +LEVE500T9 PO; +LIDO30AD10 TD; +LIDO35.4 TOP; +LINA5TAB PO; +MAGN400O6 PO; +MENT71OI TOP; +PANT40TA2 PO; +PRED-170 PO; -PRED1TAB PO; -ROSU5TAB PO; -SITA50TA PO; +SODI473S8 TP; -SPIR25TA4 PO; -TRAV5DRO OP; +ZINC220C8 PO; -[UNRECOGNIZED DRUG - CODE] PO; -[UNRECOGNIZED DRUG - CODE] PO
[2017-10-24] MEDS ORDERED: DILTIAZEM HCL 25 MG IV IV ONE ×2 (19:30→21:00)
[2017-10-24] MEDS ORDERED: ALBUTEROL SULFATE 2.5 MG/3 ML NEBU NEB ONE (19:30)
[2017-10-24] MEDS ORDERED: VANCOMYCIN IV 1,000 MG in IV DEXTROSE 5% 250 ML IV ONE (19:30)
[2017-10-24] MEDS ORDERED: [UNRECOGNIZED DRUG - CODE] PO (19:43)
[2017-10-24] MEDS ORDERED: LATA2.5D7 OP (19:43)
[2017-10-24] MEDS ORDERED: BUSP10TA3 PO (19:43)
[2017-10-24] MEDS ORDERED: CLOP75TA15 PO (19:43)
[2017-10-24] MEDS ORDERED: ALPR0.25 PO (19:43)
[2017-10-24] MEDS ORDERED: SIME80TA15 PO (19:43)
[2017-10-24] MEDS ORDERED: TROL85CR9 TP (19:43)
[2017-10-24] MEDS ORDERED: INSU100V7 SQ (19:43)
[2017-10-24] MEDS ORDERED: GABA-532 PO (19:43)
[2017-10-24] MEDS ORDERED: LEVE500T20 PO (19:43)
[2017-10-24] MEDS ORDERED: FLUT1BLS IH (19:43)
[2017-10-24] MEDS ORDERED: TRAZ-144 PO (19:43)
[2017-10-24] MEDS ORDERED: LACT1CAP61 PO (19:43)
[2017-10-24] MEDS ORDERED: BENZ1LOZ58 MM (19:43)
[2017-10-24] MEDS ORDERED: DOCU100C36 PO (19:43)
[2017-10-24] MEDS ORDERED: FLUO60TA PO (19:43)
[2017-10-24] MEDS ORDERED: IPRA0.2S6 NEB (19:43)
[2017-10-24] MEDS ORDERED: POLY17PO4 PO (19:43)
[2017-10-24] MEDS ORDERED: ALPR0.255 PO (19:43)
[2017-10-24] MEDS ORDERED: MULT1TAB73 PO (19:43)
[2017-10-24] MEDS ORDERED: UMEC62.5 IH (19:43)
[2017-10-24] MEDS ORDERED: SENN-167 PO (19:43)
[2017-10-24] MEDS ORDERED: ACET325T53 PO (19:43)
[2017-10-24] MEDS ORDERED: OMEP20TA5 PO (19:43)
[2017-10-24] MEDS ORDERED: METO25TA6 PO (19:43)
[2017-10-24] MEDS ORDERED: BISA10SU12 RC (19:43)
[2017-10-24] MEDS ORDERED: DILT90TA2 PO (19:43)
[2017-10-24] MEDS ORDERED: SODI1TAB3 PO (19:43)
[2017-10-24] MEDS ORDERED: ALBU2.5V38 IH (19:43)
[2017-10-24] MEDS ORDERED: BLOO-140 IN (19:43)
[2017-10-24] MEDS ORDERED: PROT946L PO (19:43)
[2017-10-24] MEDS ORDERED: MAG355OR18 PO (19:43)
[2017-10-24] MEDS ORDERED: FURO20TA4 PO (19:43)
[2017-10-24] MEDS ORDERED: DILTIAZEM HCL 25 MG IV ONE ×2 (19:54→20:56)
[2017-10-24] MEDS ORDERED: VANCOMYCIN IV 200 ML ONE (19:54)
[2017-10-24 19:57] LABS: BASOPHILS # (AUTO) 0.1 K/uL (0.0-8.0); BASOPHILS % (AUTO) 1.1 % (0.0-2.0); EOSINOPHILS # (AUTO) 0.2 K/uL (0.0-0.7); EOSINOPHILS % (AUTO) 2.7 % (0.0-7.0); HEMATOCRIT 27.2 % (31.2-41.9); HEMOGLOBIN 8.7 g/dL (10.9-14.3); LYMPHOCYTES # (AUTO) 2.5 K/uL (20.0-40.0); LYMPHOCYTES % (AUTO) 38.8 % (20.5-51.5); MEAN CORPUSCULAR HEMOGLOBIN 27.6 uug (24.7-32.8); MEAN CORPUSCULAR HGB CONC 32 g/dL (32.3-35.6); MEAN CORPUSCULAR VOLUME 85.9 fL (75.5-95.3); MONOCYTES # (AUTO) 0.7 K/uL (2.0-10.0); MONOCYTES % (AUTO) 11.6 % (0.0-11.0); NEUTROPHILS # (AUTO) 2.9 K/uL (1.8-8.9); NEUTROPHILS % (AUTO) 45.8 % (38.5-71.5); PLATELET COUNT (AUTO) 251 K/uL (179-408); RED BLOOD CELL COUNT(AUTO) 3.17 MIL/uL (3.63-4.92); WHITE BLOOD COUNT (AUTO) 6.4 K/uL (3.8-11.8)
[2017-10-24] MEDS ORDERED: ALBUTEROL SULFATE 2.5 MG/3 ML NEBU ONE (20:02)
[2017-10-24 20:08] LABS: CARBON DIOXIDE 30 mmol/L (21-32); CHLORIDE 104 mmol/L (98-107); CREATININE 1.2 mg/dL (0.6-1.3); GLUCOSE 155 mg/dL (74-106); POTASSIUM 4.2 mmol/L (3.5-5.1); UREA NITROGEN, BLOOD 16 mg/dL (7-18)
[2017-10-24 20:22] LABS: ALANINE AMINOTRANSFERASE 14 U/L (14-59); ALKALINE PHOSPHATASE 83 U/L (50-136); ASPARTATE AMINOTRANSFERASE 10 U/L (15-37); BILIRUBIN,DIRECT 0.1 mg/dL (0.0-0.2); BILIRUBIN,TOTAL 0.3 mg/dL (0.2-1.0); TOTAL PROTEIN, SERUM 6.1 g/dL (6.4-8.2)
[2017-10-24] MEDS ORDERED: AZITHROMYCIN IV 500 MG in IV DEXTROSE 5% 250 ML IV ONE (21:45)
[2017-10-24] MEDS ORDERED: CEFTRIAXONE 1 G in IV DEXTROSE 5% 50 ML IV ONE (21:45)
[2017-10-24] MEDS ORDERED: CEFTRIAXONE 1 G VIAL ONE (21:55)
[2017-10-24] MEDS ORDERED: AZITHROMYCIN 500 MG VIAL IV ONE (22:37)
[2017-10-24 22:49] LABS: *OCCULT BLOOD STOOL NEGATIVE (NEGATIVE)
--- NOTE | 2017-10-24 22:59 | NUR ---
GAVE REPORT TO GLADYS DE LA O.
--- NOTE | 2017-10-24 23:07 | NUR ---
Pt. admitted to [facility] ([facility] Bed1) , under care of Dr. Peña Belongs List completed. MRSA swab done
[2017-10-25] VITALS: BP 136/88
--- NOTE | 2017-10-25 | NUR ---
Received patient from ER. SOB and labored breathing noted with exertion. Nasal cannula 2L. A-fib with elevated HR in 110s. Low-grade temp noted. Otherwise, no acute distress. Continue plan of care.
--- NOTE | 2017-10-25 01:00 | NUR ---
Spoke with Dr Peña via telephone. Admission orders received.
[2017-10-25] MEDS ORDERED: DEXTROSE 50% 50 ML DISP.SYRIN IV PRN (01:15)
[2017-10-25] MEDS ORDERED: IPRATROPIUM BROMIDE 0.5 MG/2.5 ML NEBU NEB PRN (01:15)
[2017-10-25] MEDS ORDERED: LEVOFLOXACIN 500 MG/D5W 500 MG in PREMIXED 1 EACH IV ONE (02:00)
[2017-10-25] MEDS: ACETAMINOPHEN 325 MG TABLET PO PRN ×3 (02:37→21:04)
--- NOTE | 2017-10-25 02:45 | NUR ---
Noted tachycardia with HR fluctuating between 115-125 and noted low-grade fever. PRN medication given.
[2017-10-25] MEDS ORDERED: LEVOFLOXACIN 500 MG/D5W 0 ML ONE (02:50)
--- NOTE | 2017-10-25 03:30 | NUR ---
HR more controlled, low-grade fever still present however trending down
[2017-10-25 04:00] VITALS: BP 103/67
[2017-10-25] MEDS ORDERED: ALBUTEROL SULFATE 2.5 MG/ 0.5 ML NEBU NEB PRN (04:15)
[2017-10-25 05:06] LABS: BASOPHILS % (AUTO) 0.6 % (0.0-2.0); EOSINOPHILS # (AUTO) 0.1 K/uL (0.0-0.7); EOSINOPHILS % (AUTO) 2.4 % (0.0-7.0); HEMATOCRIT 26.1 % (31.2-41.9); HEMOGLOBIN 8.3 g/dL (10.9-14.3); LYMPHOCYTES # (AUTO) 2.2 K/uL (20.0-40.0); LYMPHOCYTES % (AUTO) 34.8 % (20.5-51.5); MEAN CORPUSCULAR HEMOGLOBIN 27.6 uug (24.7-32.8); MEAN CORPUSCULAR HGB CONC 32 g/dL (32.3-35.6); MEAN CORPUSCULAR VOLUME 86.7 fL (75.5-95.3); MONOCYTES # (AUTO) 0.6 K/uL (2.0-10.0); MONOCYTES % (AUTO) 9.7 % (0.0-11.0); NEUTROPHILS # (AUTO) 3.3 K/uL (1.8-8.9); NEUTROPHILS % (AUTO) 52.5 % (38.5-71.5); PLATELET COUNT (AUTO) 216 K/uL (179-408); RED BLOOD CELL COUNT(AUTO) 3.02 MIL/uL (3.63-4.92); WHITE BLOOD COUNT (AUTO) 6.3 K/uL (3.8-11.8)
[2017-10-25 05:15] LABS: ALANINE AMINOTRANSFERASE 13 U/L (14-59); ALKALINE PHOSPHATASE 72 U/L (50-136); ASPARTATE AMINOTRANSFERASE 11 U/L (15-37); BILIRUBIN,TOTAL 0.2 mg/dL (0.2-1.0); CARBON DIOXIDE 28 mmol/L (21-32); CHLORIDE 103 mmol/L (98-107); CREATININE 1.1 mg/dL (0.6-1.3); GLUCOSE 203 mg/dL (74-106); MAGNESIUM 1.7 mg/dL (1.8-2.4); PHOSPHOROUS 3.3 mg/dL (2.5-4.9); POTASSIUM 4.3 mmol/L (3.5-5.1); TOTAL PROTEIN, SERUM 5.8 g/dL (6.4-8.2); UREA NITROGEN, BLOOD 12 mg/dL (7-18)
--- NOTE | 2017-10-25 05:45 | NUR ---
Patient complains of SOB and noted wheezing. RT called for PRN breathing treatments
--- NOTE | 2017-10-25 06:30 | NUR ---
Significant improvement s/p breathing treatment.
[2017-10-25] MEDS: BLOOD SUGAR DIAGNOSTIC 1 EACH STRIP VI SCH ×4 (07:30→20:28)
[2017-10-25 08:00] VITALS: BP 107/58
[2017-10-25] MEDS: INSULIN REGULAR, HUMAN 300 UNIT/3 ML VIAL SQ PRN ×3 (08:34→20:33)
[2017-10-25] MEDS ORDERED: BISACODYL 10 MG SUPP.RECT RC PRN (08:45)
[2017-10-25] MEDS ORDERED: MAG HYDROX/AL HYDROX/SIMETH 30 ML LIQUID UDC PO PRN (08:45)
--- NOTE | 2017-10-25 08:47 | NUR ---
humulin 2 units given sq for accucheck 149 ac breakfast Addendum: 10/25/17 at 0847 by JOCELYN HATHAWAY RN Amended: Links added. Addendum: 10/25/17 at 0853 by JOCELYN HATHAWAY RN Amended: Links added.
--- NOTE | 2017-10-25 08:53 | NUR ---
seen by dr tyson. orders received. wound care consult ordered and home medications were reconciled. Addendum: 10/25/17 at 0853 by JOCELYN HATHAWAY RN Amended: Links added.
[2017-10-25] MEDS: DOCUSATE SODIUM 100 MG CAPSULE PO SCH ×2 (09:21→17:06)
[2017-10-25] MEDS: LEVETIRACETAM 500 MG TABLET PO SCH ×2 (09:21→20:28)
[2017-10-25] MEDS: SENNOSIDES 1 TABLET PO SCH (09:21)
[2017-10-25] MEDS: GABAPENTIN 100 MG CAPSULE PO SCH ×3 (09:21→17:06)
[2017-10-25] MEDS: SIMETHICONE 80 MG TAB.CHEW PO SCH ×4 (09:21→20:28)
[2017-10-25] MEDS: MIRALAX 17 GM POWD.PACK PO SCH (09:22)
[2017-10-25] MEDS: GUAIFENESIN SUGAR FREE 100 MG/5 ML UDC PO PRN ×2 (09:22→14:01)
--- NOTE | 2017-10-25 09:35 | NUR ---
medicated with robitussin for coughing spells Addendum: 10/25/17 at 0935 by JOCELYN HATHAWAY RN Amended: Links added.
[2017-10-25] MEDS: busPIRone 10 MG TABLET PO SCH ×2 (10:10→11:01)
[2017-10-25] MEDS: CLOPIDOGREL 75 MG TABLET PO SCH (10:10)
[2017-10-25] MEDS: FUROSEMIDE 20 MG TABLET PO SCH (10:11)
[2017-10-25] MEDS: ALBUTEROL SULFATE 2.5 MG/3 ML NEBU IH SCH ×4 (11:02→22:35)
[2017-10-25] MEDS: IPRATROPIUM BROMIDE 0.5 MG/2.5 ML NEBU NEB SCH ×4 (11:02→22:35)
[2017-10-25] MEDS: ALPRAZOLAM 0.25 MG TABLET PO PRN (11:05)
[2017-10-25] MEDS: FLUTICASONE/VILANTEROL 1 EACH BLST.W.DEV IH SCH (11:10)
--- NOTE | 2017-10-25 11:34 | NUR ---
no action needed for accucheck 124 Addendum: 10/25/17 at 1135 by JOCELYN HATHAWAY RN Amended: Links added.
[2017-10-25 12:00] VITALS: BP 116/73
[2017-10-25] MEDS ORDERED: ACETAMINOPHEN 325 MG TABLET PO SCH (12:00)
[2017-10-25] MEDS: DILTIAZEM HCL 90 MG TABLET PO SCH ×2 (12:39→17:06)
[2017-10-25] MEDS: METOPROLOL TARTRATE 25 MG TABLET PO SCH ×2 (12:40→17:07)
--- NOTE | 2017-10-25 13:36 | NUR ---
WOUND CARE CONSULT: PT PRESENTS WITH DRY ABRASIONS AND SCRATCHES, SKIN STAINING TO BUTTOCKS, HEALED AREA TO RT PLANTAR FOOT AND REDNESS TO LOWER LEGS WITH SWELLING AND RAISED AREA TO LEFT LOWER LEG, PRESENT ON ADMISSION. PT GETS UP TO COMMODE WITH ASSISTANCE. CURRENT ISADORA SCORE IS 16. RECOMMEND DPM FOLLOWUP. ALL SKIN PROTECTION RECOMMENDATIONS DISCUSSED WITH NURSING STAFF. WILL SEE PRN. LCUIO IN AGREEMENT WITH PLAN OF CARE. Addendum: 10/25/17 at 1338 by GONZALEZ MARTÍNEZ RN Amended: Links added.
--- NOTE | 2017-10-25 13:41 | NUR ---
WHITING MACHINE OPERATOR WOUND CARE NOTIFIED DR WARD OF PATIENT ADMISSION TO THE CCU AT [facility].
[2017-10-25] MEDS: ALPRAZOLAM 0.25 MG TABLET PO SCH ×2 (14:01→21:04)
[2017-10-25] MEDS: VANCOMYCIN IV 1,250 MG in IV NORMAL SALINE 500 ML IV SCH (14:01)
--- NOTE | 2017-10-25 14:47 | NUR ---
Clinical pharmacy note-Vancomycin dosing per pharmacy Subjective: To start Vancomycin dosing on this patient for pneumonia Objective: BUN 12 Scr 1.1 WBC 6.3 Temp 99.9 Ht 170.18cm wt 89.35kg Assessment/Plan: Patient had Vancomycin 1 gram in er last night at 2018. Will continue Vancomycin 1250mg IV every 20 hrs(first dose given today at 1400) and draw trough by 4th dose(not ordered yet) for expected trough around 16. Will monitor daily.
[2017-10-25 16:00] VITALS: BP 94/50
[2017-10-25] MEDS: MAGNESIUM SULFATE/D5W 100 ML IV SCH ×2 (16:36→17:34)
--- NOTE | 2017-10-25 16:46 | NUR ---
marisol 137, covered with 2 units humulin R sq Addendum: 10/25/17 at 1647 by JOCELYN HATHAWAY RN Amended: Links added.
--- NOTE | 2017-10-25 19:24 | NUR ---
Handoff report given to Wendi RN Addendum: 10/25/17 at 1925 by JOCELYN HATHAWAY RN Amended: Links added.
--- NOTE | 2017-10-25 19:45 | NUR ---
Report received. Patient ROJELIO, cooperative. Up to the bathroom with wheelchair and assistance from RN and [employer]. Voided and had a small BM. Patient moderately SOB and with audible wheezing during bathroom use. O2 increased to 4 L NC while in the BR. Back to bed. Skin care provided. Addendum: 10/25/17 at 2219 by HARRISON GALLOWAY RN Amended: Links added.
--- NOTE | 2017-10-25 20:05 | NUR ---
Seen by Dennise DEE. Addendum: 10/25/17 at 2226 by HARRISON GALLOWAY RN Amended: Links added.
[2017-10-25] MEDS ORDERED: LEVOFLOXACIN 500 MG/D5W 100 ML ONE (20:26)
[2017-10-25] MEDS: LATANOPROST OPHT DROP 2.5 ML BOTTLE OP SCH (20:27)
[2017-10-25] MEDS: LACTOBACILLUS RHAMNOSUS GG 1 EACH CAPSULE PO SCH (20:28)
[2017-10-25] MEDS: TRAZODONE 50 MG TABLET PO SCH (20:28)
--- NOTE | 2017-10-25 20:28 | NUR ---
Levaquin IVPB given to newly inserted IV site. (Medication was from patient's cassette; bag taken out of pyxis credited to patient and returned to pharmacy) Lata barreto. Addendum: 10/25/17 at 2229 by HARRISON GALLOWAY RN Amended: Links added.
[2017-10-25 20:29] VITALS: BP 90/43
[2017-10-25] MEDS ORDERED: LEVOFLOXACIN 250MG /D5W 250 MG in PREMIXED 1 EACH IV SCH (21:00)
[2017-10-25] MEDS ORDERED: LEVOFLOXACIN 500 MG/D5W 500 MG in PREMIXED 1 EACH IV SCH (21:00)
[2017-10-26] VITALS: BP 105/43
[2017-10-26] MEDS: IPRATROPIUM BROMIDE 0.5 MG/2.5 ML NEBU NEB SCH ×6 (02:30→22:55)
[2017-10-26] MEDS: ALBUTEROL SULFATE 2.5 MG/3 ML NEBU IH SCH ×6 (02:30→22:54)
[2017-10-26 04:00] VITALS: BP 128/66
[2017-10-26] MEDS: DILTIAZEM HCL 90 MG TABLET PO SCH ×5 (05:56→23:53)
[2017-10-26] MEDS: ALPRAZOLAM 0.25 MG TABLET PO SCH ×3 (05:57→21:01)
[2017-10-26] MEDS: METOPROLOL TARTRATE 25 MG TABLET PO SCH ×5 (05:57→23:52)
--- NOTE | 2017-10-26 06:00 | NUR ---
Up to the bathroom 4 times; still moderately SOB during ambulation. O2 at 2 L NC continuously. Still c/o itchiness to back; cream to back per patient's request.
[2017-10-26] MEDS: PANTOPRAZOLE SODIUM 40 MG TABLET.DR PO SCH (06:01)
[2017-10-26] MEDS: BLOOD SUGAR DIAGNOSTIC 1 EACH STRIP VI SCH ×4 (06:55→20:29)
--- NOTE | 2017-10-26 08:00 | NUR ---
Pt is in alert and oriented x 4. Pt on o2 @ 2liter. Discussed plan of care with pt re: notify any SOB, Fall precaution, and pain management, and NTE 700cc of fluid intake prevent congestion. Pt agreeable with plan of care. CANDELARIO LE's swollen and red. Call light is within reach.
[2017-10-26 08:28] LABS: BASOPHILS % (AUTO) 0.6 % (0.0-2.0); EOSINOPHILS # (AUTO) 0.1 K/uL (0.0-0.7); EOSINOPHILS % (AUTO) 2.1 % (0.0-7.0); HEMOGLOBIN 8.8 g/dL (10.9-14.3); LYMPHOCYTES # (AUTO) 2.2 K/uL (20.0-40.0); LYMPHOCYTES % (AUTO) 35.1 % (20.5-51.5); MEAN CORPUSCULAR HGB CONC 33 g/dL (32.3-35.6); MEAN CORPUSCULAR VOLUME 86.1 fL (75.5-95.3); MONOCYTES # (AUTO) 0.6 K/uL (2.0-10.0); MONOCYTES % (AUTO) 8.9 % (0.0-11.0); NEUTROPHILS # (AUTO) 3.4 K/uL (1.8-8.9); NEUTROPHILS % (AUTO) 53.3 % (38.5-71.5); PLATELET COUNT (AUTO) 218 K/uL (179-408); RED BLOOD CELL COUNT(AUTO) 3.13 MIL/uL (3.63-4.92); WHITE BLOOD COUNT (AUTO) 6.4 K/uL (3.8-11.8)
[2017-10-26] MEDS: GABAPENTIN 100 MG CAPSULE PO SCH ×3 (08:50→16:45)
[2017-10-26] MEDS: FUROSEMIDE 20 MG TABLET PO SCH (08:50)
[2017-10-26] MEDS: SIMETHICONE 80 MG TAB.CHEW PO SCH ×4 (08:50→20:15)
[2017-10-26] MEDS: LEVETIRACETAM 500 MG TABLET PO SCH ×2 (08:50→20:15)
[2017-10-26] MEDS: MIRALAX 17 GM POWD.PACK PO SCH (08:50)
[2017-10-26] MEDS: SENNOSIDES 1 TABLET PO SCH (08:50)
[2017-10-26] MEDS: DOCUSATE SODIUM 100 MG CAPSULE PO SCH ×2 (08:51→16:45)
[2017-10-26] MEDS: LACTOBACILLUS RHAMNOSUS GG 1 EACH CAPSULE PO SCH ×2 (08:51→20:16)
[2017-10-26] MEDS: busPIRone 10 MG TABLET PO SCH (08:54)
[2017-10-26] MEDS: FLUTICASONE/VILANTEROL 1 EACH BLST.W.DEV IH SCH (08:54)
[2017-10-26 08:55] LABS: ALANINE AMINOTRANSFERASE 11 U/L (14-59); ALKALINE PHOSPHATASE 70 U/L (50-136); ASPARTATE AMINOTRANSFERASE 15 U/L (15-37); BILIRUBIN,TOTAL 0.3 mg/dL (0.2-1.0); CARBON DIOXIDE 27 mmol/L (21-32); CHLORIDE 103 mmol/L (98-107); GLUCOSE 137 mg/dL (74-106); PHOSPHOROUS 3.3 mg/dL (2.5-4.9); POTASSIUM 4.6 mmol/L (3.5-5.1); TOTAL PROTEIN, SERUM 5.9 g/dL (6.4-8.2); UREA NITROGEN, BLOOD 9 mg/dL (7-18)
[2017-10-26 08:57] LABS: IRON, SERUM 19 ug/dL (50-175)
[2017-10-26] MEDS: INSULIN REGULAR, HUMAN 300 UNIT/3 ML VIAL SQ PRN ×4 (09:02→20:31)
[2017-10-26] MEDS: GUAIFENESIN SUGAR FREE 100 MG/5 ML UDC PO PRN (10:12)
[2017-10-26] MEDS: SODIUM HYPOCHLORITE 0.125% 473 ML BOTTLE TP SCH (10:13)
[2017-10-26] MEDS: ALPRAZOLAM 0.25 MG TABLET PO PRN (10:13)
[2017-10-26] MEDS: CADEXOMER IODINE 40 GM TUBE TOP SCH (10:13)
[2017-10-26] MEDS: VANCOMYCIN IV 1,250 MG in IV NORMAL SALINE 500 ML IV SCH (10:15)
[2017-10-26] MEDS: MULTIVITAMINS,THERAPEUTIC TABLET PO SCH (11:12)
[2017-10-26] MEDS: FLUOXETINE HCL 20 MG CAPSULE PO SCH (11:13)
[2017-10-26] MEDS: CLOPIDOGREL 75 MG TABLET PO SCH (11:13)
[2017-10-26] MEDS: PROTEIN SUPPLEMENT (PROSTAT) 30 ML LIQUID PO SCH ×2 (11:15→16:45)
[2017-10-26 11:37] VITALS: BP 116/71
[2017-10-26] MEDS ORDERED: ACIDOPHILUS/BULGARICUS CHEW TAB GT SCH (13:00)
--- NOTE | 2017-10-26 13:44 | NUR ---
Clinical pharmacy note-Vancomycin dosing per pharmacy Subjective: To continue Vancomycin dosing on this patient for pneumonia Objective: BUN 9 Scr 1.0 WBC 6.4 Temp 98.4 Ht 170.18cm wt 89.35kg Assessment/Plan: Will continue Vancomycin 1250mg IV every 20 hrs(second dose given today at 1000) and draw trough by 4th dose(not ordered yet) for expected trough around 16. Will monitor daily.
[2017-10-26] MEDS: ACETAMINOPHEN 325 MG TABLET PO PRN (14:13)
[2017-10-26 15:56] VITALS: BP 85/41
[2017-10-26 16:27] VITALS: BP 94/46
--- NOTE | 2017-10-26 17:00 | NUR ---
pT CURRENT B/P AT sbp @ 90'S HELD CARDIZEM AND BETA BRIAN PER PARAMETER GIVEN. PT ASYMPTOMATIC. Pt denies any c/o pain. Notified Dr Rondon of holding b/p meds.
--- NOTE | 2017-10-26 18:50 | NUR ---
Pt is in no acute distress. Plan of care effective. Call light is within reach.
[2017-10-26 20:00] VITALS: BP 97/48
--- NOTE | 2017-10-26 20:00 | NUR ---
PT IN ROOM ALERT AWAKE AND ORIENTED WITH NO RESP DISTRESS. ABLE TO MAKE NEEDS KNOWN. NO S/S OF HYPER/HYPOGLYCEMIA. OXYGEN NOTED 2L/MIN. CABLE SUPERVISOR SHOWING A-FIB CONTROLLED WITH HR 63. PT AWAKE TO INFORM STAFF FOR ASSISTANCE AND WHEN USING THE RESTROOM. MINIMAL NON PRODUCTIVE COUGH WITH NO FEVER PRESENT. CALL LIGHT PLACED WITHIN REACH. BP NOW 97/48. DENIES AY PAIN OR DIZZINESS. WILL CONTINUE TO MONITOR. ENCOURAGED PT ON SAFETY PRECAUTIONS.
[2017-10-26] MEDS: TRAZODONE 50 MG TABLET PO SCH (20:16)
[2017-10-26] MEDS: LATANOPROST OPHT DROP 2.5 ML BOTTLE OP SCH (20:34)
[2017-10-26] MEDS ORDERED: LEVOFLOXACIN 500 MG TABLET PO SCH (21:00)
--- NOTE | 2017-10-26 23:45 | NUR ---
PT'S BP NOTED 112/65. DENIES ANY DIZZINESS OR PAIN. PT AGREES TO HAVE BP MEDICATION FOR ROUTINE MIDNIGHT TO PREVENT DROP IN BP. WILL CONTINUE TO MONITOR. CIGAR PACKER AND PICKER REMAINING CONTROLLED A-FIB WITH HR 97. NO S/S OF RESP DISTRESS. REMINDED PT TO ASK FOR ASSISTANCE WHEN NEEDING TO USE RESTROOM. CALL LIGHT WITHIN REACH.
[2017-10-27] VITALS: BP 112/65
[2017-10-27] MEDS: IPRATROPIUM BROMIDE 0.5 MG/2.5 ML NEBU NEB SCH ×4 (02:46→16:12)
[2017-10-27] MEDS: ALBUTEROL SULFATE 2.5 MG/3 ML NEBU IH SCH ×4 (02:46→16:12)
[2017-10-27 04:00] VITALS: BP 113/59
[2017-10-27] MEDS: METOPROLOL TARTRATE 25 MG TABLET PO SCH ×2 (05:02→12:00)
[2017-10-27] MEDS: ALPRAZOLAM 0.25 MG TABLET PO SCH ×2 (05:02→14:09)
[2017-10-27] MEDS: DILTIAZEM HCL 90 MG TABLET PO SCH ×2 (05:04→12:00)
[2017-10-27] MEDS: VANCOMYCIN IV 1,250 MG in IV NORMAL SALINE 500 ML IV SCH (05:05)
--- NOTE | 2017-10-27 05:11 | NUR ---
PT ABLE TO TAKE METROPROLOL WITH CARDIZEM HELD. DENIES ANY PAIN OR DIZZINESS AT THIS TIME. REFUSED TO TAKE UPDATED WOUND PICTURES AT THIS TIME. CALL LIGHT WITHIN REACH. OXYGEN TITRATED TO 2L/MIN FROM 3L.
--- NOTE | 2017-10-27 06:00 | NUR ---
PT'S SORTING MACHINE OPERATOR MAINTAING A-FIB CONTROLLED WITH HR NOTED 104. PT CONTINUES TO HAVE SOB UPON EXERTION. OXYGEN KEPT AT 3L/MIN WITH O2 SAT 93%. PT REMINDED TO USE CALL LIGHT FOR ASSISTANCE NEEDED.
[2017-10-27] MEDS: BLOOD SUGAR DIAGNOSTIC 1 EACH STRIP VI SCH ×3 (06:30→17:07)
--- NOTE | 2017-10-27 08:00 | NUR ---
Pt.restless demanded to go outside ,SOB at rest , at bedside,updated pt.with condition and plan of care.
[2017-10-27 08:32] VITALS: BP 109/50
[2017-10-27] MEDS: SODIUM HYPOCHLORITE 0.125% 473 ML BOTTLE TP SCH (09:00)
[2017-10-27] MEDS: CADEXOMER IODINE 40 GM TUBE TOP SCH (09:00)
[2017-10-27] MEDS ORDERED: LEVO500T2 PO (09:03)
[2017-10-27] MEDS ORDERED: VANC1.2511 IV (09:03)
[2017-10-27] MEDS ORDERED: IPRA0.2S6 NEB (09:03)
[2017-10-27] MEDS ORDERED: RXVAN XX (09:03)
[2017-10-27] MEDS: SIMETHICONE 80 MG TAB.CHEW PO SCH ×3 (09:21→17:10)
[2017-10-27] MEDS: DOCUSATE SODIUM 100 MG CAPSULE PO SCH ×2 (09:21→17:10)
[2017-10-27] MEDS: SENNOSIDES 1 TABLET PO SCH ×2 (09:21→17:07)
[2017-10-27] MEDS: PANTOPRAZOLE SODIUM 40 MG TABLET.DR PO SCH (09:21)
[2017-10-27] MEDS: MIRALAX 17 GM POWD.PACK PO SCH (09:21)
[2017-10-27] MEDS: FUROSEMIDE 20 MG TABLET PO SCH (09:21)
[2017-10-27] MEDS: busPIRone 10 MG TABLET PO SCH (09:22)
[2017-10-27] MEDS: MULTIVITAMINS,THERAPEUTIC TABLET PO SCH (09:22)
[2017-10-27] MEDS: LEVETIRACETAM 500 MG TABLET PO SCH (09:22)
[2017-10-27] MEDS: LACTOBACILLUS RHAMNOSUS GG 1 EACH CAPSULE PO SCH (09:22)
[2017-10-27] MEDS: FLUOXETINE HCL 20 MG CAPSULE PO SCH (09:22)
[2017-10-27] MEDS: GABAPENTIN 100 MG CAPSULE PO SCH ×3 (09:22→17:07)
[2017-10-27] MEDS: PROTEIN SUPPLEMENT (PROSTAT) 30 ML LIQUID PO SCH ×3 (09:23→17:11)
[2017-10-27] MEDS: Z GUARD REMEDY PASTE 57 GM TUBE TOP PRN ×2 (09:23→09:38)
[2017-10-27] MEDS: FLUTICASONE/VILANTEROL 1 EACH BLST.W.DEV IH SCH (09:29)
[2017-10-27] MEDS: INSULIN REGULAR, HUMAN 300 UNIT/3 ML VIAL SQ PRN (09:32)
[2017-10-27] MEDS: CLOPIDOGREL 75 MG TABLET PO SCH (09:33)
[2017-10-27] MEDS: ACETAMINOPHEN 325 MG TABLET PO PRN (09:36)
--- NOTE | 2017-10-27 10:00 | NUR ---
Pt. calm watching TV, no s/s of acute distress.
--- NOTE | 2017-10-27 10:36 | NUR ---
Clinical pharmacy note-Vancomycin dosing per pharmacy Subjective: To continue Vancomycin dosing on this patient for pneumonia Objective: BUN 9 (10/26) Scr 1.0 (10/26) WBC 6.4 (10/26) Temp 99.5 Ht 170.18cm wt 89.35kg Trough: due tomorrow 10/28 @0130 Assessment/Plan: Will continue Vancomycin 1250mg IV every 20 hrs(third dose today at 0600) and draw trough by 4th dose(due tomorrow early am at 0130) for expected trough around 16. RN endorsed to hold dose if trough >20. Baljeet check trough in am and adjust as needed. Will monitor daily.
[2017-10-27 11:38] VITALS: BP 105/59
[2017-10-27 15:24] VITALS: BP 113/67
--- NOTE | 2017-10-27 16:30 | NUR ---
SBAR REPORT GIVEN to Cholo/KHAI POMONA
--- NOTE | 2017-10-27 16:33 | NUR ---
No changes in pt.condition,no s/s of distress or pain noted,watching TV.
--- NOTE | 2017-10-27 17:16 | NUR ---
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
--- NOTE | 2017-10-27 18:00 | NUR ---
PT.WAS D/C SBAR REPORT GIVEN TO AMBULANCE TRANSPORT TEAM,NO S/S OF DISTRESS,DENIES ANY PAIN.PICTURES WAS TAKEN.
== END 2017-10-27 18:10 | DRG 602 ==
LOC: ER 18:58 → CCU 23:20 → TELE-TD 10-25 18:22
PROVIDERS: ADMIT Internal Medicine; ATTEND Internal Medicine
DX: L03.115 Cellulitis of right lower limb (principal); J15.9 Unspecified bacterial pneumonia; J44.0 Chronic obstructive pulmonary disease with (acute) lower respiratory infection; J44.1 Chronic obstructive pulmonary disease with (acute) exacerbation; J91.8 Pleural effusion in other conditions classified elsewhere; J90 Pleural effusion, not elsewhere classified; L03.116 Cellulitis of left lower limb; I83.811 Varicose veins of right lower extremity with pain; E11.621 Type 2 diabetes mellitus with foot ulcer; L97.529 Non-pressure chronic ulcer of other part of left foot with unspecified severity; L97.519 Non-pressure chronic ulcer of other part of right foot with unspecified severity; Z85.3 Personal history of malignant neoplasm of breast; G40.909 Epilepsy, unspecified, not intractable, without status epilepticus; E78.5 Hyperlipidemia, unspecified; E66.9 Obesity, unspecified; Z68.30 Body mass index [BMI] 30.0-30.9, adult; Z71.3 Dietary counseling and surveillance; Z99.3 Dependence on wheelchair; M19.90 Unspecified osteoarthritis, unspecified site; R09.02 Hypoxemia; Z90.49 Acquired absence of other specified parts of digestive tract; I80.9 Phlebitis and thrombophlebitis of unspecified site; F43.10 Post-traumatic stress disorder, unspecified; D64.9 Anemia, unspecified; Z79.899 Other long term (current) drug therapy; Z79.4 Long term (current) use of insulin; Z86.19 Personal history of other infectious and parasitic diseases; Z86.72 Personal history of thrombophlebitis; I48.91 Unspecified atrial fibrillation; G83.21 Monoplegia of upper limb affecting right dominant side; D46.9 Myelodysplastic syndrome, unspecified; I11.9 Hypertensive heart disease without heart failure
CPT/HCPCS: 36415; 70030-TC; 71045; 73630; 83550; 83605; 83735; 84100; 85025; 85730; 87040; 93005; 94640; 94664; 97110; 97530; A4663; J0456; J0696; J1815; J1956; J3370; J3475; J3490; J3590; J7040; J7050; J7060